=== PATIENT | female | born 1975 | race Caucasian/White ===

== ENCOUNTER 2017-07-29 11:39 | Inpatient (IN) | payer BC ==
[~2017-07-29] VITALS: Ht 157.5 cm; Wt 97.9 kg
[2017-07-29 11:43] VITALS: BP 158/90; PULSE 112; RESP 18; TEMP 98.5; O2SAT 98
--- NOTE | 2017-07-29 12:13 | PD ---
HPI Chief Complaint: GI Complaint Time Seen by Provider: 12:02 Travel History International Travel<30 days: No Contact w/Intl Traveler<30days: No Traveled to known affect area: No History of Present Illness HPI This 42-year-old female says she has not felt well for several months. She moved here from [place] about 4 months ago. She had a very heavy period about 3 months ago and that the last time she had any vaginal bleeding. The last couple of months she is been having periods where she gets nauseated and feels very tired. 9 days ago she was not able to hold anything down. She has noted that her eyes are yellow. She was drinking 3 or 4 drinks 3 or 4 times a day but has not had any alcohol for about 10 days. She has been nauseated. She is not on any medication. She does not take Tylenol. She denies any history of IV drug use [facility] Past Medical History Medical History: Denies Significant Hx Diminished Hearing: No Tetanus Vaccination: < 5 Years ?: Not Past Surgical History Section: Yes Social History Alcohol Use: Yes (SOC) Tobacco Use: No Substance Use: No Allergies-Medications (Allergen,Severity, Reaction): Coded Allergies: No Known Allergies (Unverified , 07/29/17) Reported Meds & Prescriptions Reported Meds & Active Scripts Active No Active Prescriptions or Reported Medications Review of Systems General / Constitutional: No: Fever Eyes: No: Diploplia HENT: No: Headaches, Vertigo Respiratory: No: Cough Gastrointestinal: Positive: Nausea, Vomiting, Abdominal Pain, Other (Jaundice) Genitourinary: No: Urgency, Frequency Musculoskeletal: No: Myalgias, Arthralgias Skin: Positive Change in Pigmentation, No Rash Neurologic: Positive: Weakness Hematologic/Lymphatic: Positive: Easy Bruising Physical Exam Narrative GENERAL: Well-developed female. She is intensely jaundiced SKIN: Focused skin assessment warm/dry. Jaundiced HEAD: Atraumatic. Normocephalic. EYES: Pupils equal and round. There is scleral icterus. No injection or drainage. ENT: No nasal bleeding or discharge. Mucous membranes pink and moist. NECK: Trachea midline. No JVD. CARDIOVASCULAR: Regular rate and rhythm. No murmur appreciated. RESPIRATORY: No accessory muscle use. Clear to auscultation. Breath sounds equal bilaterally. GASTROINTESTINAL: Abdomen soft, liver is enlarged and firm MUSCULOSKELETAL: No obvious deformities. No clubbing. No cyanosis. No edema. NEUROLOGICAL: Awake and alert. No obvious cranial nerve deficits. Motor grossly within normal limits. Normal speech. PSYCHIATRIC: Appropriate mood and affect; insight and judgment normal. Data Data Last Documented VS Vital Signs Date Time Temp Pulse Resp B/P (MAP) Pulse Ox O2 Delivery O2 Flow Rate FiO2 07/29/17 11:43 98.5 112 18 158/90 (112) 98 Orders Orders Urinalysis - C+S If Indicated (07/29/17 12:06) Ed Urine Pregnancytest Poc (07/29/17 12:06) Complete Blood Count With Diff (07/29/17 12:08) Comprehensive Metabolic Panel (07/29/17 12:08) Prothrombin Time / Inr (Pt) (07/29/17 12:08) Act Partial Throm Time (Ptt) (07/29/17 12:08) Magnesium (Mg) (07/29/17 12:08) Ct Abd/Pel W Iv Contrast(Rout) (07/29/17 12:08) Sodium Chlor 0.9% 1000 Ml Inj (Ns 1000 M (07/29/17 12:15) Urine Culture (07/29/17 12:05) Ammonia (07/29/17 12:56) Ns + Kcl 40 Meq Inj (Ns + Kcl 40 Meq Inj (07/29/17 13:30) Iohexol 350 Inj (Omnipaque 350 Inj) (07/29/17 13:26) Labs Laboratory Tests Test 07/29/17 12:05 07/29/17 12:20 07/29/17 13:00 Urine Collection Type CLEAN CATCH Urine Color BROWN Urine Turbidity SL CLOUDY Urine pH 6.5 Urine Specific [place] LESS/EQUAL 1.005 Urine Protein 30 mg/dL Urine Glucose (UA) 100 mg/dL Urine Ketones 15 mg/dL Urine Occult Blood MOD Urine Nitrite POS Urine Bilirubin LARGE Urine Urobilinogen 1.0 MG/DL Urine Leukocyte Esterase MOD Urine RBC 0-3 /hpf Urine WBC 15-19 /hpf Urine Squamous Epithelial Cells 0-5 /hpf Urine Bacteria MOD /hpf Microscopic Urinalysis Comment CULTURE INDICATED Urine Collection Time 12:05 White Blood Count 14.8 TH/MM3 Red Blood Count 3.78 MIL/MM3 Hemoglobin 12.4 GM/DL Hematocrit 36.4 % Mean Corpuscular Volume 96.4 FL Mean Corpuscular Hemoglobin 32.8 PG Mean Corpuscular Hemoglobin Concent 34.0 % Red Cell Distribution Width 19.7 % Platelet Count 113 TH/MM3 Mean Platelet Volume 7.8 FL Neutrophils (%) (Auto) 79.0 % Lymphocytes (%) (Auto) 10.1 % Monocytes (%) (Auto) 9.6 % Eosinophils (%) (Auto) 0.7 % Basophils (%) (Auto) 0.6 % Neutrophils # (Auto) 11.7 TH/MM3 Lymphocytes # (Auto) 1.5 TH/MM3 Monocytes # (Auto) 1.4 TH/MM3 Eosinophils # (Auto) 0.1 TH/MM3 Basophils # (Auto) 0.1 TH/MM3 CBC Comment DIFF FINAL Differential Comment Prothrombin Time 22.1 SEC Prothromb Time International Ratio 2.2 RATIO Activated Partial Thromboplast Time 34.1 SEC Blood Urea Nitrogen 7 MG/DL Creatinine 1.10 MG/DL Random Glucose 91 MG/DL Total Protein 8.6 GM/DL Albumin 1.7 GM/DL Calcium Level 7.4 MG/DL Magnesium Level 1.4 MG/DL Alkaline Phosphatase 277 U/L Aspartate Amino Transf (AST/SGOT) 302 U/L Alanine Aminotransferase (ALT/SGPT) 38 U/L Total Bilirubin 21.0 MG/DL Sodium Level 130 MEQ/L Potassium Level 2.7 MEQ/L Chloride Level 90 MEQ/L Carbon Dioxide Level 31.8 MEQ/L Anion Gap 8 MEQ/L Estimat Glomerular Filtration Rate 54 ML/MIN Protein Corrected Calcium MG/DL Ammonia 45 MCMOL/L MDM Medical Decision Making Medical Screen Exam Complete: Yes Emergency Medical Condition: Yes Medical Record Reviewed: Yes Differential Diagnosis Differential includes biliary obstruction, cirrhosis, Narrative Course .Bilirubin level is 21. Hemoglobin is 12.4 with a white count of 14,000. Urine does show 15-19 white cells. Her sodium is 130 with potassium of 2.7. Ammonia level is 45. A CT scan of the abdomen and pelvis was obtained. The liver is enlarged with diffuse decreased attenuation suggesting fatty infiltration or diffuse hepatocellular disease. There is recanalization of the umbilical vein with mild splenomegaly. Findings are suggestive of portal hypertension. There is also a thick-walled gallbladder with many minimal pericholecystic fluid there is some ascites there is mild diffuse colonic wall thickening suggesting possible colitis. Her INR is 2. This is a new onset of jaundice and possible hepatic failure. She does have mild UTI with 10-15 white cells and will be started on Rocephin. Diagnosis Primary Impression: Jaundice Additional Impression: UTI (urinary tract infection) Admitting Information Admitting Physician Requests: Admit Scripts No Active Prescriptions or Reported Meds Rex Bashir MD Jul 29, 2017 12:13
[2017-07-29] MEDS ORDERED: SODIUM CHLOR 0.9% 1000 ML INJ 1,000 ML IV ONE (12:15)
[2017-07-29 12:20] LABS: BILIRUBIN, URINE LARGE (NEG); BLOOD, URINE MOD (NEG); GLUCOSE,URINE 100 mg/dL (NEG); KETONE, URINE 15 mg/dL (NEG); NITRITE,URINE POS (NEG); PH, URINE 6.5 (5.0-8.5); URINE LEUKOCYTE ESTERASE MOD (NEG)
[2017-07-29 12:28] LABS: URINE COLOR BROWN (YELLW/STRAW)
[2017-07-29 12:29] LABS: RBC, URINE 0-3 /hpf (0-3); SQUAMOUS EPITHELIAL CELL URINE 0-5 /hpf (0-5)
[2017-07-29 12:30] LABS: BACTERIA, URINE MOD /hpf; WBC, URINE 15-19 /hpf (0-5)
[2017-07-29 12:33] LABS: AUTOMATED NEUTROPHIL # 11.7 TH/MM3 (1.8-7.7); BASOPHIL # 0.1 TH/MM3 (0-0.2); BASOPHIL % 0.6 % (0.0-2.0); EOSINOPHIL # 0.1 TH/MM3 (0-0.4); EOSINOPHIL % 0.7 % (0.0-4.0); HEMATOCRIT 36.4 % (35.0-46.0); HEMOGLOBIN 12.4 GM/DL (11.6-15.3); LYMPH % 10.1 % (9.0-44.0); LYMPHOCYTE # 1.5 TH/MM3 (1.0-4.8); MEAN CELL VOLUME 96.4 FL (80.0-100.0); MEAN CORPUSCULAR HEMOGLOBIN 32.8 PG (27.0-34.0); MEAN PLATELET VOLUME 7.8 FL (7.0-11.0); MONO % 9.6 % (0.0-8.0); MONOCYTE # 1.4 TH/MM3 (0-0.9); PLATELET COUNT 113 TH/MM3 (150-450); RED BLOOD COUNT 3.78 MIL/MM3 (4.00-5.30); RED CELL DISTRIBUTION WIDTH 19.7 % (11.6-17.2); WHITE BLOOD COUNT 14.8 TH/MM3 (4.0-11.0)
[2017-07-29 12:53] LABS: INTERNATIONAL NORMALIZED RATIO 2.2 RATIO; PROTHROMBIN TIME - PATIENT 22.1 SEC (9.8-11.6)
[2017-07-29 13:05] LABS: ALBUMIN 1.7 GM/DL (3.4-5.0); BICARBONATE 31.8 MEQ/L (21.0-32.0); CREATININE 1.1 MG/DL (0.50-1.00); MAGNESIUM 1.4 MG/DL (1.5-2.5); TOTAL PROTEIN 8.6 GM/DL (6.4-8.2)
[2017-07-29 13:08] LABS: CALCIUM 7.4 MG/DL (8.5-10.1)
[2017-07-29] MEDS ORDERED: IOHEXOL 350 MG/ML 10 ML VIAL (for RAD DIAG) IVCONTRAST ONE (13:26)
[2017-07-29] MEDS ORDERED: NS + KCL 40 MEQ INJ 1,000 ML IV SCH (13:30)
--- NOTE | 2017-07-29 13:44 | RADRPT ---
EXAM DATE/TIME: 07/29/2017 13:17 [facility] COMPARISON: No previous studies available for comparison. INDICATIONS : Abdominal pain, nausea, vomiting and diarrhea x 9 days. Jaundice. IV CONTRAST: 90 cc Omnipaque 350 (iohexol) IV ORAL CONTRAST: No oral contrast ingested. RADIATION DOSE: 20.82 CTDIvol (mGy) MEDICAL HISTORY : None SURGICAL HISTORY : section. ENCOUNTER: Initial ACUITY: 1 week PAIN SCALE: 4/10 LOCATION: Mid abdomen. TECHNIQUE: Volumetric scanning of the abdomen and pelvis was performed. Using automated exposure control and ad justment of the mA and/or kV according to patient size, radiation dose was kept as low as reasonably achievable to obtain optimal diagnostic quality images. DICOM format image data is available electro nically for review and comparison. FINDINGS: LOWER LUNGS: The visualized lower lungs are clear. LIVER: The liver is enlarged and demonstrates diffuse decreased attenuation consistent with fatty infiltrati on or diffuse hepatocellular disease. There is probable recanalization of the umbilical vein suggesti ng portal hypertension. Varices are noted throughout the abdomen. The wall of the gallbladder is mild ly thickened. Minimal pericholecystic fluid is noted. If there is clinical concern for acute cholecys titis, a hepatobiliary scan may be helpful to confirm cystic duct obstruction. SPLEEN: The spleen is enlarged. PANCREAS: Within normal limits. KIDNEYS: Normal in size and shape. There is no mass, stone or hydronephrosis. ADRENAL GLANDS: Within normal limits. VASCULAR: There is no aortic aneurysm. BOWEL/MESENTERY: Mild diffuse colonic wall thickening suggesting possible colitis. Clinical correlation is recommended . Some ascites is noted within the abdomen or pelvis. ABDOMINAL WALL: Within normal limits. RETROPERITONEUM: There is no lymphadenopathy. BLADDER: No wall thickening or mass. REPRODUCTIVE: Within normal limits. INGUINAL: There is no lymphadenopathy or hernia. MUSCULOSKELETAL: Within normal limits for patient age. CONCLUSION: 1. Enlarged liver with diffuse decreased attenuation suggestive of fatty infiltration or diffuse hepa tocellular disease. Recanalization of the umbilical vein as well as varices throughout the peritoneum . Mild splenomegaly. Findings are suggestive of portal hypertension. Clinical correlation is recommen ded. 2. Thick-walled gallbladder with minimal pericholecystic fluid. If there is clinical concern for acut e cholecystitis, a hepatobiliary scan may be helpful to confirm cystic duct structure. 3. Some ascites within the abdomen or pelvis. 4. Mild diffuse colonic wall thickening suggesting possible colitis. Ramon Vivas MD on July 29, 2017 at 13:30 Board Certified Radiologist. This report was verified electronically.
[2017-07-29] MEDS ORDERED: cefTRIAXone INJ 1,000 MG in SODIUM CHLORIDE 0.9% INJ 100 ML IV ONE (14:00)
[2017-07-29] MEDS ORDERED: NALOXONE HCL 0.4 MG/ML AMP IV PUSH PRN (14:00)
[2017-07-29] MEDS ORDERED: SENNOSIDES 8.6 MG TAB PO PRN (14:00)
[2017-07-29] MEDS ORDERED: ONDANSETRON HCL 4 MG/2 ML VIAL IVP PRN (14:00)
[2017-07-29] MEDS ORDERED: FUROSEMIDE 20 MG/2 ML VIAL IV PUSH ONE (14:00)
[2017-07-29] MEDS ORDERED: SODIUM CHLORIDE 0.9% FLUSH 10 ML FLUSH IV FLUSH PRN (14:00)
[2017-07-29] MEDS: metroNIDAZOLE 500 MG TAB PO SCH ×2 (14:11→21:18)
--- NOTE | 2017-07-29 14:59 | HHI.HP ---
HPI Service [facility] Primary Care Physician No Primary Care Physician Admission Diagnosis JAUNDICE Diagnoses: Chief Complaint: abdominal pain Travel History International Travel<30 Days: No Contact w/Intl Traveler <30 Da: No Traveled to Known Affected Are: No Sepsis Criteria SIRS Criteria (2 or more): Heart rate over 90, WBC > 92678, < 4000 or > 10% bands Sepsis Criteria (SIRS+source): Infect source susp/known History of Present Illness Patient seen and evaluated today in follow-up for jaundice. She has come to the emergency room complaining of vaginal bleeding and epistaxis with yellow eyes for the last several days. She drinks quite a bit of rum daily for the last 20 years although for the last 10 days she has been abstinent because she has been too nauseated to drink. She lives with her and recently relocated from [place]. She has not had any liver failure probably from alcohol dependency. She is recommended to be admitted to the hospital for further evaluation. CT and pelvis that showed some evidence of colitis the patient is septic on exam. She denies vomiting or intestinal bleeding. She has noted some easy bruising and yellow eyes. For this she came to the hospital and was found to have increased heart rate and LFTs as well as an elevated ammonia. Patient appears to have acute onset of Review of Systems Constitutional: DENIES: Diaphoretic episodes, Fatigue, Fever, Weight gain, Weight loss, Chills, Dizziness, Change in appetite, Night Sweats Endocrine: DENIES: Abnorml menstrual pattern, Heat/cold intolerance, Polydipsia , Polyuria, Polyphagia Eyes: DENIES: Blurred vision, Diplopia, Eye inflammation, Eye pain, Vision loss , Photosensitivity, Double Vision Ears, nose, mouth, throat: COMPLAINS OF: Epistaxis, DENIES: Tinnitus, Hearing loss, Vertigo, Nasal discharge, Oral lesions, Throat pain, Hoarseness, Ear Pain , Running Nose, Sinus Pain, Toothache, Odynophagia Respiratory: DENIES: Apneas, Cough, Snoring, Wheezing, Hemoptysis, Sputum production, Shortness of breath Cardiovascular: DENIES: Chest pain, Palpitations, Syncope, Dyspnea on Exertion , PND, Lower Extremity Edema, Orthopnea, Claudication Gastrointestinal: COMPLAINS OF: Abdominal pain, DENIES: Black stools, Bloody stools, Constipation, Diarrhea, Nausea, Vomiting, Difficulty Swallowing, Anorexia Genitourinary: COMPLAINS OF: Abnormal vaginal bleeding, DENIES: Dysmenorrhea, Dyspareunia, Sexual dysfunction, Urinary frequency, Urinary incontinence, Urgency, Hematuria, Dysuria, Nocturia, Vaginal discharge Musculoskeletal: DENIES: Joint pain, Muscle aches, Stiffness, Joint Swelling, Back pain, Neck pain Integumentary: DENIES: Abnormal pigmentation, Pruritus, Rash, Nail changes, Breast masses, Breast skin changes, Nipple discharge Hematologic/lymphatic: DENIES: Bruising, Lymphadenopathy Immunologic/allergic: DENIES: Eczema, Urticaria Neurologic: DENIES: Abnormal gait, Headache, Localized weakness, Paresthesias, Seizures, Speech Problems, Tremor, Poor Balance Psychiatric: DENIES: Anxiety, Confusion, Mood changes, Depression, Hallucinations, Agitation, Suicidal Ideation, Homicidal Ideation, Delusions Except as stated in HPI: all other systems reviewed are Neg Past Family Social History Past Medical History Denies Past Surgical History Reported Medications Denies Allergies: Coded Allergies: No Known Allergies (Unverified , 07/29/17) Active Ordered Medications Reviewed in the EMR Family History Mother has COPD and breast cancer Father is alive and well Social History No current tobacco, drinks 5 liquor drinks daily for the last 20 years Recently transferred from [place] Physical Exam Vital Signs Vital Signs Date Time Temp Pulse Resp B/P (MAP) Pulse Ox O2 Delivery O2 Flow Rate FiO2 07/29/17 11:43 98.5 112 18 158/90 (112) 98 Physical Exam GENERAL: This is a well-nourished, jaundice SKIN: Diffuse telangiectasia no rashes, ecchymoses or lesions. Cool and dry. HEAD: Atraumatic. Normocephalic. No temporal or scalp tenderness. EYES: Pupils equal round and reactive. Extraocular motions intact. severe icterus. No injection or drainage. ENT: Nose without bleeding, purulent drainage or septal hematoma. Throat without erythema, tonsillar hypertrophy or exudate. Uvula midline. Airway patent. NECK: Trachea midline. No JVD or lymphadenopathy. Supple, nontender, no meningeal signs. CARDIOVASCULAR: Regular rate and rhythm without murmurs, gallops, or rubs. RESPIRATORY: Clear to auscultation. Breath sounds equal bilaterally. No wheezes , rales, or rhonchi. GASTROINTESTINAL: Abdomen soft, non-tender, mildly distended. No hepato- splenomegaly, or palpable masses. No guarding. MUSCULOSKELETAL: Extremities without clubbing, cyanosis, or edema. No joint tenderness, effusion, or edema noted. No calf tenderness. Negative Homans sign bilaterally. NEUROLOGICAL: Awake and alert. Cranial nerves II through XII intact. Motor and sensory grossly within normal limits. Five out of 5 muscle strength in all muscle groups. Normal speech. Laboratory Laboratory Tests Test 07/29/17 12:05 07/29/17 12:20 07/29/17 13:00 Urine Collection Type CLEAN CATCH Urine Color BROWN Urine Turbidity SL CLOUDY Urine pH 6.5 Urine Specific [place] LESS/EQUAL 1.005 Urine Protein 30 Urine Glucose (UA) 100 Urine Ketones 15 Urine Occult Blood MOD Urine Nitrite POS Urine Bilirubin LARGE Urine Urobilinogen 1.0 Urine Leukocyte Esterase MOD Urine RBC 0-3 Urine WBC 15-19 Urine Squamous Epithelial Cells 0-5 Urine Bacteria MOD Microscopic Urinalysis Comment CULTURE INDICATED Urine Collection Time 12:05 White Blood Count 14.8 Red Blood Count 3.78 Hemoglobin 12.4 Hematocrit 36.4 Mean Corpuscular Volume 96.4 Mean Corpuscular Hemoglobin 32.8 Mean Corpuscular Hemoglobin Concent 34.0 Red Cell Distribution Width 19.7 Platelet Count 113 Mean Platelet Volume 7.8 Neutrophils (%) (Auto) 79.0 Lymphocytes (%) (Auto) 10.1 Monocytes (%) (Auto) 9.6 Eosinophils (%) (Auto) 0.7 Basophils (%) (Auto) 0.6 Neutrophils # (Auto) 11.7 Lymphocytes # (Auto) 1.5 Monocytes # (Auto) 1.4 Eosinophils # (Auto) 0.1 Basophils # (Auto) 0.1 CBC Comment DIFF FINAL Differential Comment Prothrombin Time 22.1 Prothromb Time International Ratio 2.2 Activated Partial Thromboplast Time 34.1 Blood Urea Nitrogen 7 Creatinine 1.10 Random Glucose 91 Total Protein 8.6 Albumin 1.7 Calcium Level 7.4 Magnesium Level 1.4 Alkaline Phosphatase 277 Aspartate Amino Transf (AST/SGOT) 302 Alanine Aminotransferase (ALT/SGPT) 38 Total Bilirubin 21.0 Sodium Level 130 Potassium Level 2.7 Chloride Level 90 Carbon Dioxide Level 31.8 Anion Gap 8 Estimat Glomerular Filtration Rate 54 Protein Corrected Calcium Ammonia 45 Date/Time Source Procedure Growth Status 07/29/17 12:05 Urine Clean Catch Urine Culture Pending Received Result Diagram: 07/29/17 1220 07/29/17 1220 Imaging Last Impressions Abdomen/Pelvis CT 07/29/17 1208 Signed Impressions: Service Date/Time: July 13:17 - CONCLUSION: 1. Enlarged liver with diffuse decreased attenuation suggestive of fatty infiltration or diffuse hepatocellular disease. Recanalization of the umbilical vein as well as varices throughout the peritoneum. Mild splenomegaly. Findings are suggestive of portal hypertension. Clinical correlation is recommended. 2. Thick-walled gallbladder with minimal pericholecystic fluid. If there is clinical concern for acute cholecystitis, a hepatobiliary scan may be helpful to confirm cystic duct structure. 3. Some ascites within the abdomen or pelvis. 4. Mild diffuse colonic wall thickening suggesting possible colitis. Ramon Vivas MD Septic Shock Reassessment Septic shock perfusion: reassessment completed Caprini VTE Risk Assessment Caprini VTE Risk Assessment: Mod/High Risk (score >= 2) VTE Pharm Contraindication: Coagulopathy,INR elevated Caprini Risk Assessment Model Point Value = 1 Point Value = 2 Point Value = 3 Point Value = 5 Age 41-60 Minor surgery BMI > 25 kg/m2 Swollen legs Varicose veins or History of unexplained or recurrent spontaneous Oral contraceptives or hormone replacement Sepsis (< 1 month) Serious lung disease, including pneumonia (< 1 month) Abnormal pulmonary function Acute myocardial infarction Congestive heart failure (< 1 month) History of inflammatory bowel disease Medical patient at bed rest Age 61-74 Arthroscopic surgery Major open surgery (> 45 min) Laparoscopic surgery (> 45 min) Malignancy Confined to bed (> 72 hours) Immobilizing plaster cast Central venous access Age >= 75 History of VTE Family history of VTE Factor V Leiden Prothrombin [id number] Lupus anticoagulant Anticardiolipin antibodies Elevated serum homocysteine Heparin-induced thrombocytopenia Other congenital or acquired thrombophilia Stroke (< 1 month) Elective arthroplasty Hip, pelvis, or leg fracture Acute spinal cord injury (< 1 month) Prophylaxis Regimen Total Risk Factor Score Risk Level Prophylaxis Regimen 0-1 Low Early ambulation 2 Moderate Order ONE of the following: *Sequential Compression Device (SCD) *Heparin 5000 units SQ BID 3-4 Higher Order ONE of the following medications: *Heparin 5000 units SQ TID *Enoxaparin/Lovenox 40 mg SQ daily (WT < 150 kg, CrCl > 30 mL/min) *Enoxaparin/Lovenox 30 mg SQ daily (WT < 150 kg, CrCl > 10-29 mL/min) *Enoxaparin/Lovenox 30 mg SQ BID (WT < 150 kg, CrCl > 30 mL/min) AND/OR *Sequential Compression Device (SCD) 5 or more Highest Order ONE of the following medications: *Heparin 5000 units SQ TID (Preferred with Epidurals) *Enoxaparin/Lovenox 40 mg SQ daily (WT < 150 kg, CrCl > 30 mL/min) *Enoxaparin/Lovenox 30 mg SQ daily (WT < 150 kg, CrCl > 10-29 mL/min) *Enoxaparin/Lovenox 30 mg SQ BID (WT < 150 kg, CrCl > 30 mL/min) AND *Sequential Compression Device (SCD) Assessment and Plan Problem List: (1) Abdominal pain ICD Code: R10.9 - Unspecified abdominal pain Plan: Multifactorial due to probable colitis and ascites Continue with pain control (2) UTI (urinary tract infection) ICD Code: N39.0 - Urinary tract infection, site not specified Status: Acute Plan: Continue Cipro and follow-up cultures (3) Jaundice ICD Code: R17 - Unspecified jaundice Status: Acute Plan: Probably related to alcohol related and beta-jorge luis GI consult We will check hepatitis profile to rule out underlying viral hepatitis Patient may need HIDA scan (4) Colitis ICD Code: K52.9 - Noninfective gastroenteritis and colitis, unspecified Plan: With evidence of sepsis and leukocytosis, tachycardia Continue IV metronidazole and ciprofloxacin (5) Hepatic failure ICD Code: K72.90 - Hepatic failure, unspecified without coma Plan: Likely related to alcohol dependency as patient has been drinking rum daily for the last 20 years Patient has telangiectasias, elevated PT and a bilirubin of 21 with a sodium of 130 and elevated creatinine This is poor overall prognosis (6) Hypokalemia ICD Code: E87.6 - Hypokalemia Plan: follow up electrolytes and replace as needed Code Status full code Discussed Condition With patient ERMD Physician Certification 2 Midnight Certification Type: Admission for Inpatient Services Order for Inpatient Services The services are ordered in accordance with Medicare regulations or non- Medicare payer requirements, as applicable. In the case of services not specified as inpatient-only, they are appropriately provided as inpatient services in accordance with the 2-midnight benchmark. Estimated LOS (days): 2 2 days is the estimated time the patient will need to remain in the hospital, assuming treatment plan goals are met and no additional complications. Post-Hospital Plan: Chloe Rivera MD Jul 29, 2017 14:59
[2017-07-29] MEDS ORDERED: MAGNESIUM SULFATE 1 GM PREMIX 100 ML IV ONE ×2 (15:00→16:00)
[2017-07-29] MEDS: CIPROFLOXACIN 400 MG PREMIX 200 ML IV SCH (15:03)
[2017-07-29] MEDS: POTASSIUM CHLORIDE 20 MEQ CONTROLLED RELEASE TAB PO SCH ×2 (15:09→21:12)
[2017-07-29 15:26] VITALS: BP 137/68; PULSE 75; RESP 16; O2SAT 97
--- NOTE | 2017-07-29 15:32 | PD.CONS ---
HPI History of Present Illness This is a 42 year old female admitted on 07/29/17 with symptoms of fatigue, nausea for the last 3 months, vomiting 10 days, and generalized jaundice over the past 6 days. According to the record and patient she moved here approximately 4 months ago from the [place] area with her . Associating factors , Patient states daily alcohol dependence and usage, rum, 3- 4 drinks a day. She denies any illicit drugs or tobacco use. She also had noticed some abdominal bloating with her jaundice but was hoping that it would pass. Currently patient is alert, awake, and answering questions appropriately. Patient denies any fevers, no headache, no diarrhea, no constipation, and no dysphasia. Patient states No previous colonoscopy or EGD. Patient denies any hematemesis or rectal bleeding. (Lindsay Lazar) PFSH Past Medical History Alcohol dependence Past Surgical History (Lindsay Lazar) Coded Allergies: No Known Allergies (Unverified , 07/29/17) Medications Administered Medications Medications (Trade) Dose Ordered Sig/Jermaine Route PRN Reason Start Time Stop Time Status Last Admin Dose Admin Ciprofloxacin/ Dextrose 200 ml @ 200 mls/hr Q12H IV 07/29/17 15:00 07/29/17 15:03 Metronidazole (Flagyl) 500 mg Q8HR PO 07/29/17 14:00 07/29/17 14:11 Family History Mother has COPD and breast cancer Father is alive and well No history of colon cancer or GI illness Social History No current tobacco, drinks 5 liquor drinks daily for the last 20 years Recently transferred from [place] 4 months ago (Lindsay Lazar) Review of Systems Constitutional: COMPLAINS OF: Fatigue Gastrointestinal: COMPLAINS OF: Nausea, Vomiting, Swelling of Abdomen (Lindsay Lazar) GI Exam Vitals I&O Vital Signs Date Time Temp Pulse Resp B/P (MAP) Pulse Ox O2 Delivery O2 Flow Rate FiO2 07/29/17 11:43 98.5 112 18 158/90 (112) 98 I/O 07/28/17 07/28/17 07/28/17 07/29/17 07/29/17 07/29/17 07:00 15:00 23:00 07:00 15:00 23:00 Intake Total 1000 ml 100 ml Balance 1000 ml 100 ml Intake IV Total 1000 ml 100 ml Imaging Last Impressions Abdomen/Pelvis CT 07/29/17 1208 Signed Impressions: Service Date/Time: July 13:17 - CONCLUSION: 1. Enlarged liver with diffuse decreased attenuation suggestive of fatty infiltration or diffuse hepatocellular disease. Recanalization of the umbilical vein as well as varices throughout the peritoneum. Mild splenomegaly. Findings are suggestive of portal hypertension. Clinical correlation is recommended. 2. Thick-walled gallbladder with minimal pericholecystic fluid. If there is clinical concern for acute cholecystitis, a hepatobiliary scan may be helpful to confirm cystic duct structure. 3. Some ascites within the abdomen or pelvis. 4. Mild diffuse colonic wall thickening suggesting possible colitis. Ramon Vivas MD Laboratory Test 07/29/17 12:05 07/29/17 12:20 07/29/17 13:00 Urine Collection Type CLEAN CATCH Urine Color BROWN Urine Turbidity SL CLOUDY Urine pH 6.5 Urine Specific [place] LESS/EQUAL 1.005 Urine Protein 30 mg/dL Urine Glucose (UA) 100 mg/dL Urine Ketones 15 mg/dL Urine Occult Blood MOD Urine Nitrite POS Urine Bilirubin LARGE Urine Urobilinogen 1.0 MG/DL Urine Leukocyte Esterase MOD Urine RBC 0-3 /hpf Urine WBC 15-19 /hpf Urine Squamous Epithelial Cells 0-5 /hpf Urine Bacteria MOD /hpf Microscopic Urinalysis Comment CULTURE INDICATED Urine Collection Time 12:05 White Blood Count 14.8 TH/MM3 Red Blood Count 3.78 MIL/MM3 Hemoglobin 12.4 GM/DL Hematocrit 36.4 % Mean Corpuscular Volume 96.4 FL Mean Corpuscular Hemoglobin 32.8 PG Mean Corpuscular Hemoglobin Concent 34.0 % Red Cell Distribution Width 19.7 % Platelet Count 113 TH/MM3 Mean Platelet Volume 7.8 FL Neutrophils (%) (Auto) 79.0 % Lymphocytes (%) (Auto) 10.1 % Monocytes (%) (Auto) 9.6 % Eosinophils (%) (Auto) 0.7 % Basophils (%) (Auto) 0.6 % Neutrophils # (Auto) 11.7 TH/MM3 Lymphocytes # (Auto) 1.5 TH/MM3 Monocytes # (Auto) 1.4 TH/MM3 Eosinophils # (Auto) 0.1 TH/MM3 Basophils # (Auto) 0.1 TH/MM3 CBC Comment DIFF FINAL Differential Comment Prothrombin Time .1 SEC Prothromb Time International Ratio 2.2 RATIO Activated Partial Thromboplast Time 34.1 SEC Blood Urea Nitrogen 7 MG/DL Creatinine 1.10 MG/DL Random Glucose 91 MG/DL Total Protein 8.6 GM/DL Albumin 1.7 GM/DL Calcium Level 7.4 MG/DL Magnesium Level 1.4 MG/DL Alkaline Phosphatase 277 U/L Aspartate Amino Transf (AST/SGOT) 302 U/L Alanine Aminotransferase (ALT/SGPT) 38 U/L Total Bilirubin 21.0 MG/DL Sodium Level 130 MEQ/L Potassium Level 2.7 MEQ/L Chloride Level 90 MEQ/L Carbon Dioxide Level 31.8 MEQ/L Anion Gap 8 MEQ/L Estimat Glomerular Filtration Rate 54 ML/MIN Protein Corrected Calcium MG/DL Ammonia 45 MCMOL/L Date/Time Source Procedure Growth Status 07/29/17 12:05 Urine Clean Catch Urine Culture Pending Received Physical Examination HEENT: Pupils round and reactive to light; normocephalic; atraumatic; positive for jaundice icteric sclera NECK: Neck is supple, no JVD, no lymphadenopathy. CHEST: Chest is clear to audible rhonchi or wheezing CARDIAC: Regular rate and rhythm ABDOMEN: Large, Soft, tympanic, no obvious tenderness with light palpation, + hepatosplenomegaly; bowel sounds are present in all four quadrants. EXTREMITIES: No lower extremity edema. SKIN: Normal; no rash; generalized jaundice. DESIGN COORDINATOR: No focal deficits; alert and oriented times three. No obvious confusion (Lindsay Lazar) Assessment and Plan Assessment: (1) Jaundice ICD Codes: R17 - Unspecified jaundice Status: Acute (2) Hepatic failure ICD Codes: K72.90 - Hepatic failure, unspecified without coma Plan 42-year-old male with long history of alcohol dependence greater than 20 years multiple drinks at least 4 times a day. No previous EGD or colonoscopy. Noted fatigue for several months jaundice and abdominal bloating and swelling for the past 6 days worsening. Patient denies any diarrhea or constipation. Nausea for several months with nausea and vomiting for the past 10 days. Current hemoglobin is 12.4 patient denies any obvious bleeding. Mild leukocytosis with white count 14.8. Labs show bilirubin 21, AST 302, ALT 38, alkaline phosphatase 277,, coagulopathy with increased INR 2.2. Abdominal CT done on 07/29/17 shows an enlarged liver with diffuse decreased attenuation suggestive of fatty infiltration or diffuse hepatocellular disease. Recannulization of the umbilical vein as well as varices throughout the peritoneum. Mild splenomegaly, suggestive of portal hypertension. Clinical correlation is recommended. Peak walled gallbladder with minimal tayler- cholecystic fluid., If there is clinical concern for cholecystitis, a hepatobiliary scan may be helpful to confirm cystic duct stricture. Ascites within the abdomen and pelvis. Mild diffuse colonic wall thickening suggesting possible colitis. Probable alcoholic hepatic failure without, Jaundice Coagulopathy Nausea and vomiting probable secondary to #1 Possible colitis based on CT scan Rule out cholecystitis, or common bile not stricture/dilatation Plan Diet per attending Mack IV with Flagyl being given by mouth Aldactone 25 mg twice a day, lactulose daily Zofran as needed for nausea Labs, liver workup, hepatic functional panel AFP Mitochondrial total labs Smooth muscle tone on labs Ceruloplasmin JEANINE Ferritin level Iron iron-binding capacity MRCP, to evaluate for common bile duct stricture Further recommendations to follow This patient was seen per myself and Dr. Cisneros, note is written on his behalf (Lindsay Lazar) Assessment: (1) Jaundice ICD Codes: R17 - Unspecified jaundice Status: Acute (2) Hepatic failure ICD Codes: K72.90 - Hepatic failure, unspecified without coma Plan: Patient was seen and examined, agree with above-noted, most likely this is alcohol related but other etiology cannot be ruled out such as acute hepatitis infectious or other etiologies will be consider we will plan on doing full workup, patient was advised to stop drinking completely (Mayad Jane MD) Lindsay Lazar Jul 29, 2017 15:32 Mayda Jane MD Jul 29, 2017 18:36
[2017-07-29 15:38] LABS: ALBUMIN 1.6 GM/DL (3.4-5.0)
[2017-07-29 15:40] LABS: DIRECT BILIRUBIN ADULT 15.2 MG/DL (0.0-0.2)
[2017-07-29 15:41] LABS: ALT (GPT) 38 U/L (10-53); AST (GOT) 283 U/L (15-37); DIRECT BILIRUBIN ADULT 15.6 MG/DL (0.0-0.2); PHOSPHORUS 1.7 MG/DL (2.5-4.9)
[2017-07-29 15:42] LABS: INDIRECT BILIRUBIN 4.7 MG/DL (0.0-0.8); TOTAL BILIRUBIN ADULT 19.9 MG/DL (0.2-1.0); TOTAL PROTEIN 8.1 GM/DL (6.4-8.2)
[2017-07-29 15:44] LABS: ALKALINE PHOSPHATASE 256 U/L (45-117)
[2017-07-29 16:00] VITALS: BP 141/91; PULSE 109; RESP 18; TEMP 98.9; O2SAT 99
[2017-07-29 17:34] LABS: IRON (FE) 44 MCG/DL (50-170)
[2017-07-29 17:37] LABS: % SATURATION IRON PROFILE 36.1 % (20-50); FERRITIN 1028 NG/ML (8-252); TOTAL IRON BINDING CAPACITY 122 MCG/DL (250-450)
[2017-07-29] MEDS: SPIRONOLACTONE 25 MG TAB PO SCH (17:37)
[2017-07-29 20:00] VITALS: BP 127/76; PULSE 105; RESP 20; TEMP 98; O2SAT 97
[2017-07-29] MEDS: SODIUM CHLORIDE 0.9% FLUSH 10 ML FLUSH IV FLUSH SCH (21:13)
[2017-07-30] VITALS: BP 129/77; PULSE 101; RESP 20; TEMP 98.2; O2SAT 98
[2017-07-30] MEDS: CIPROFLOXACIN 400 MG PREMIX 200 ML IV SCH ×2 (04:21→15:44)
[2017-07-30] MEDS: metroNIDAZOLE 500 MG TAB PO SCH ×3 (06:27→21:03)
[2017-07-30 06:51] LABS: BASOPHIL # 0.1 TH/MM3 (0-0.2); BASOPHIL % 0.8 % (0.0-2.0); EOSINOPHIL # 0.2 TH/MM3 (0-0.4); EOSINOPHIL % 1.8 % (0.0-4.0); HEMOGLOBIN 11.4 GM/DL (11.6-15.3); LYMPH % 12.9 % (9.0-44.0); LYMPHOCYTE # 1.7 TH/MM3 (1.0-4.8); MEAN CELL VOLUME 96.7 FL (80.0-100.0); MEAN CORPUSCULAR HEMOGLOBIN 32.5 PG (27.0-34.0); MEAN CORPUSCULAR HGB CONC 33.6 % (32.0-36.0); MEAN PLATELET VOLUME 8.4 FL (7.0-11.0); MONO % 8.7 % (0.0-8.0); MONOCYTE # 1.1 TH/MM3 (0-0.9); NEUT % 75.8 % (16.0-70.0); PLATELET COUNT 106 TH/MM3 (150-450); RED BLOOD COUNT 3.51 MIL/MM3 (4.00-5.30); RED CELL DISTRIBUTION WIDTH 19.6 % (11.6-17.2); WHITE BLOOD COUNT 13.1 TH/MM3 (4.0-11.0)
[2017-07-30 07:28] LABS: ALBUMIN 1.5 GM/DL (3.4-5.0); BICARBONATE 28.7 MEQ/L (21.0-32.0); CREATININE 0.91 MG/DL (0.50-1.00); TOTAL BILIRUBIN ADULT 19.9 MG/DL (0.2-1.0); TOTAL PROTEIN 7.7 GM/DL (6.4-8.2)
[2017-07-30 07:39] LABS: CALCIUM 7.1 MG/DL (8.5-10.1)
[2017-07-30 07:42] LABS: CALCIUM-PROTEIN CORRECTED 6.9 MG/DL (8.5-10.1)
[2017-07-30 08:49] VITALS: BP 133/85; PULSE 98; RESP 16; TEMP 99.2; O2SAT 97
[2017-07-30] MEDS: SPIRONOLACTONE 25 MG TAB PO SCH ×2 (08:53→17:47)
[2017-07-30] MEDS: POTASSIUM CHLORIDE 20 MEQ CONTROLLED RELEASE TAB PO SCH ×2 (08:53→21:03)
[2017-07-30] MEDS: LACTULOSE SYRUP 20 GM/30 ML CUP PO SCH (08:54)
[2017-07-30] MEDS: SODIUM CHLORIDE 0.9% FLUSH 10 ML FLUSH IV FLUSH SCH ×2 (08:54→19:53)
[2017-07-30] MEDS ORDERED: POTASSIUM CHLOR 20 MEQ PREMIX 100 ML IV ONE (09:00)
[2017-07-30] MEDS ORDERED: POTASSIUM CHLORIDE 20 MEQ CONTROLLED RELEASE TAB PO ONE (09:00)
[2017-07-30 10:27] LABS: MAGNESIUM 1.8 MG/DL (1.5-2.5)
[2017-07-30 10:31] LABS: PHOSPHORUS 1.2 MG/DL (2.5-4.9)
[2017-07-30] MEDS ORDERED: CALCIUM GLUCONATE INJ 2 GM in SODIUM CHLORIDE 0.9% INJ 100 ML IV ONE (11:00)
--- NOTE | 2017-07-30 11:19 | HHI.PR ---
Subjective Remarks Patient seen and evaluated today in follow-up for liver failure likely multifactorial due to hepatitis C and alcohol dependency Patient feels better today. Abdominal pain is improved Objective Vitals Vital Signs Date Time Temp Pulse Resp B/P (MAP) Pulse Ox O2 Delivery O2 Flow Rate FiO2 07/30/17 08:49 99.2 98 16 133/85 (101) 97 07/30/17 00:00 98.2 101 20 129/77 (94) 98 07/29/17 20:00 98.0 105 20 127/76 (93) 97 07/29/17 16:00 98.9 109 18 141/91 (108) 99 07/29/17 15:57 07/29/17 15:26 75 16 137/68 (91) 97 07/29/17 11:43 98.5 112 18 158/90 (112) 98 I/O 07/29/17 07/29/17 07/29/17 07/30/17 07/30/17 07/30/17 07:00 15:00 23:00 07:00 15:00 23:00 Intake Total 1125 ml 400 ml 120 ml Balance 1125 ml 400 ml 120 ml Intake Oral 120 ml IV Total 1125 ml 400 ml # Voids 1 8 # Bowel Movements 0 Result Diagram: 07/30/17 0607 07/30/17 0607 Imaging Last Impressions Abdomen/Pelvis CT 07/29/17 1208 Signed Impressions: Service Date/Time: July 13:17 - CONCLUSION: 1. Enlarged liver with diffuse decreased attenuation suggestive of fatty infiltration or diffuse hepatocellular disease. Recanalization of the umbilical vein as well as varices throughout the peritoneum. Mild splenomegaly. Findings are suggestive of portal hypertension. Clinical correlation is recommended. 2. Thick-walled gallbladder with minimal pericholecystic fluid. If there is clinical concern for acute cholecystitis, a hepatobiliary scan may be helpful to confirm cystic duct structure. 3. Some ascites within the abdomen or pelvis. 4. Mild diffuse colonic wall thickening suggesting possible colitis. Ramon Vivas MD Objective Remarks GENERAL: This is a well-nourished, well-developed patient, jaundiced CARDIOVASCULAR: Regular rate and rhythm without murmurs, gallops, or rubs. RESPIRATORY: Clear to auscultation. Breath sounds equal bilaterally. No wheezes , rales, or rhonchi. GASTROINTESTINAL: Abdomen soft, non-tender, mildly distended. Normal active bowel sounds MUSCULOSKELETAL: Extremities without clubbing, cyanosis, or edema. NEURO: Alert & Oriented x4 to person, place, time, situation. Moves all ext x4 A/P Problem List: (1) Abdominal pain ICD Code: R10.9 - Unspecified abdominal pain Plan: Multifactorial due to probable colitis and ascites Continue with pain control and treatment of infection (2) UTI (urinary tract infection) ICD Code: N39.0 - Urinary tract infection, site not specified Status: Acute Plan: Continue Cipro and follow-up cultures (3) Jaundice ICD Code: R17 - Unspecified jaundice Status: Acute Plan: Probably related to alcohol related Continue with Aldactone, beta-jorge luis and lactulose GI consult appreciated, hepatitis C positive Follow-up MRCP (4) Colitis ICD Code: K52.9 - Noninfective gastroenteritis and colitis, unspecified Plan: With evidence of sepsis and leukocytosis, tachycardia Continue IV metronidazole and ciprofloxacin (5) Hepatic failure ICD Code: K72.90 - Hepatic failure, unspecified without coma Plan: Multifactorial due to alcohol dependency and hepatitis C Workup in progress (6) Hypokalemia ICD Code: E87.6 - Hypokalemia Plan: follow up electrolytes and replace as needed Hypo-magnesium is improved Patient with hypophosphatemia And hypokalemia Discharge Planning Clinical improvement and pending workup Chloe Chamberlain MD Jul 30, 2017 11:19
--- NOTE | 2017-07-30 11:53 | RADRPT ---
EXAM DATE/TIME: 07/30/2017 09:57 [facility] COMPARISON: No previous studies available for comparison. INDICATIONS : Obstruction. Jaundice and stomach pain. MEDICAL HISTORY : None. SURGICAL HISTORY : section. ENCOUNTER: Initial ACUITY: 1 day PAIN SCORE: 6/10 LOCATION: Right upper quadrant TECHNIQUE: Multiplanar, multisequence magnetic resonance imaging of the abdomen was performed. High-resolution 3D dataset was utilized to reconstruct maximum-intensity projection (MIP) images. FINDINGS: The examination is degraded by motion artifact. I do not see obvious gallstones. Trace ascites is e vident. The gallbladder wall does not appear to be thickened by MRI The common duct is very small and appears normal Moderate fatty replacement of the liver Normal size spleen The portal vein appears patent. CONCLUSION: 1. Ascities 2. Prominent gallbladder and gallbladder wall. No gallstones. 3. Normal common duct 4. Pancreas poorly seen because of motion Josh Post MD FACR on July 30, 2017 at 11:49 Board Certified Radiologist. This report was verified electronically.
[2017-07-30 12:00] VITALS: BP 146/96; PULSE 98; RESP 16; TEMP 97.7; O2SAT 97
[2017-07-30] MEDS: POTASSIUM PHOSPHATE MONOBASIC 500 MG TAB PO SCH ×2 (12:43→21:03)
--- NOTE | 2017-07-30 15:14 | HHI.GIFU ---
Subjective Remarks Patient is laying in bed comfortably, still very jaundice, less abdominal pain, no new complaint except being anxious about the results of her labs and x-rays Objective Vitals I&O Vital Signs Date Time Temp Pulse Resp B/P (MAP) Pulse Ox O2 Delivery O2 Flow Rate FiO2 07/30/17 12:00 97.7 98 16 146/96 (113) 97 07/30/17 08:49 99.2 98 16 133/85 (101) 97 07/30/17 00:00 98.2 101 20 129/77 (94) 98 07/29/17 20:00 98.0 105 20 127/76 (93) 97 07/29/17 16:00 98.9 109 18 141/91 (108) 99 07/29/17 15:57 07/29/17 15:26 75 16 137/68 (91) 97 I/O 07/29/17 07/29/17 07/29/17 07/30/17 07/30/17 07/30/17 07:00 15:00 23:00 07:00 15:00 23:00 Intake Total 1125 ml 400 ml 120 ml Balance 1125 ml 400 ml 120 ml Intake Oral 120 ml IV Total 1125 ml 400 ml # Voids 1 8 # Bowel Movements 0 Laboratory Laboratory Tests Test 07/29/17 15:17 07/29/17 18:35 07/30/17 06:07 07/30/17 10:52 Phosphorus Level 1.7 1.2 Iron Level 44 Total Iron Binding Capacity 122 Percent Iron Saturation 36.1 Ferritin 1028 Total Bilirubin 19.9 19.9 Direct Bilirubin 15.2 Indirect Bilirubin 4.7 Aspartate Amino Transf (AST/SGOT) 283 252 Alanine Aminotransferase (ALT/SGPT) 38 34 Alkaline Phosphatase 256 244 Total Creatine Kinase 149 Total Protein 8.1 7.7 Albumin 1.6 1.5 Thyroid Stimulating Hormone 3rd Gen 2.560 Hepatitis A IgM Antibody NONREACTIVE Hepatitis B Surface Antigen NONREACTIVE Hepatitis B Core IgM Antibody NONREACTIVE Hepatitis C IgG Antibody REACTIVE Tumor Marker Alpha Fetoprotein 4.7 White Blood Count 13.1 Red Blood Count 3.51 Hemoglobin 11.4 Hematocrit 34.0 Mean Corpuscular Volume 96.7 Mean Corpuscular Hemoglobin 32.5 Mean Corpuscular Hemoglobin Concent 33.6 Red Cell Distribution Width 19.6 Platelet Count 106 Mean Platelet Volume 8.4 Neutrophils (%) (Auto) 75.8 Lymphocytes (%) (Auto) 12.9 Monocytes (%) (Auto) 8.7 Eosinophils (%) (Auto) 1.8 Basophils (%) (Auto) 0.8 Neutrophils # (Auto) 10.0 Lymphocytes # (Auto) 1.7 Monocytes # (Auto) 1.1 Eosinophils # (Auto) 0.2 Basophils # (Auto) 0.1 CBC Comment DIFF FINAL Differential Comment Blood Urea Nitrogen 5 Creatinine 0.91 Random Glucose 90 Calcium Level 7.1 Sodium Level 133 Potassium Level 2.7 Chloride Level 94 Carbon Dioxide Level 28.7 Anion Gap 10 Estimat Glomerular Filtration Rate 68 Protein Corrected Calcium 6.9 Magnesium Level 1.8 Test 07/30/17 12:23 Ammonia 67 Date/Time Source Procedure Growth Status 07/29/17 12:05 Urine Clean Catch Urine Culture - Preliminary RESULTS PENDING Resulted Physical Exam HEENT: Pupils round and reactive to light; normocephalic; atraumatic; severe jaundice. Throat is clear. NECK: Neck is supple, no JVD, no lymphadenopathy. CHEST: Chest is clear to auscultation and percussion. CARDIAC: Regular rate and rhythm with no murmur gallop or rubs. ABDOMEN: Soft, distended with ascites, nontender; no hepatosplenomegaly; bowel sounds are present in all four quadrants. EXTREMITIES: No clubbing, cyanosis, trace edema. SKIN: Normal; no rash; severe jaundice. TRANSITION PROGRAM MANAGER: No focal deficits; alert and oriented times three. Assessment and Plan Assessment: (1) Jaundice ICD Codes: R17 - Unspecified jaundice Status: Acute (2) Hepatic failure ICD Codes: K72.90 - Hepatic failure, unspecified without coma Plan: Patient was seen and examined, agree with above-noted, most likely this is alcohol related but other etiology cannot be ruled out such as acute hepatitis infectious or other etiologies will be consider we will plan on doing full workup, patient was advised to stop drinking completely Plan 42-year-old male with long history of alcohol dependence greater than 20 years multiple drinks at least 4 times a day. No previous EGD or colonoscopy. Noted fatigue for several months jaundice and abdominal bloating and swelling for the past 6 days worsening. Patient denies any diarrhea or constipation. Nausea for several months with nausea and vomiting for the past 10 days. Current hemoglobin is 12.4 patient denies any obvious bleeding. Mild leukocytosis with white count 14.8. Labs show bilirubin 21, AST 302, ALT 38, alkaline phosphatase 277,, coagulopathy with increased INR 2.2. Abdominal CT done on 07/29/17 shows an enlarged liver with diffuse decreased attenuation suggestive of fatty infiltration or diffuse hepatocellular disease. Recannulization of the umbilical vein as well as varices throughout the peritoneum. Mild splenomegaly, suggestive of portal hypertension. Clinical correlation is recommended. Peak walled gallbladder with minimal tayler- cholecystic fluid., If there is clinical concern for cholecystitis, a hepatobiliary scan may be helpful to confirm cystic duct stricture. Ascites within the abdomen and pelvis. Mild diffuse colonic wall thickening suggesting possible colitis. 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
[2017-07-30 17:44] VITALS: RESP 18
[2017-07-30 18:00] VITALS: BP 150/96; PULSE 99; RESP 16; TEMP 98; O2SAT 100
[2017-07-30 21:50] VITALS: BP 132/75; PULSE 98; RESP 18; TEMP 97.4; O2SAT 97
[2017-07-31 01:00] VITALS: BP 118/69; PULSE 96; RESP 18; O2SAT 96
[2017-07-31] MEDS: metroNIDAZOLE 500 MG TAB PO SCH ×2 (05:21→12:56)
[2017-07-31] MEDS: CIPROFLOXACIN 400 MG PREMIX 200 ML IV SCH ×2 (05:21→14:18)
[2017-07-31 08:00] VITALS: BP 148/90; PULSE 100; RESP 16; TEMP 98.6; O2SAT 97
[2017-07-31] MEDS: SPIRONOLACTONE 25 MG TAB PO SCH (09:05)
[2017-07-31] MEDS: POTASSIUM CHLORIDE 20 MEQ CONTROLLED RELEASE TAB PO SCH (09:05)
[2017-07-31] MEDS: SODIUM CHLORIDE 0.9% FLUSH 10 ML FLUSH IV FLUSH SCH (09:06)
[2017-07-31] MEDS: POTASSIUM PHOSPHATE MONOBASIC 500 MG TAB PO SCH (09:06)
[2017-07-31] MEDS: LACTULOSE SYRUP 20 GM/30 ML CUP PO SCH (09:06)
[2017-07-31 09:19] LABS: ALBUMIN 1.4 GM/DL (3.4-5.0); ALKALINE PHOSPHATASE 212 U/L (45-117); ALT (GPT) 31 U/L (10-53); AST (GOT) 221 U/L (15-37); BICARBONATE 28.6 MEQ/L (21.0-32.0); BLOOD UREA NITROGEN 3 MG/DL (7-18); CALCIUM 7.6 MG/DL (8.5-10.1); CHLORIDE 98 MEQ/L (98-107); CREATININE 0.82 MG/DL (0.50-1.00); GLOMERULAR FILTRATION RATE 76 ML/MIN (>89); GLUCOSE,RANDOM 84 MG/DL (74-106); SODIUM (NA) 134 MEQ/L (136-145); TOTAL PROTEIN 7.4 GM/DL (6.4-8.2)
[2017-07-31] MEDS ORDERED: POTASSIUM CHLORIDE 10 MEQ CONTROLLED RELEASE TAB PO ONE (10:30)
[2017-07-31] MEDS ORDERED: CALCIUM GLUCONATE INJ 1 GM in DEXTROSE 5% IN WATER 100ML INJ 100 ML IV ONE ×2 (11:00)
--- NOTE | 2017-07-31 11:32 | HHI.DCPOC ---
Discharge Care Plan Diagnosis: (1) Hepatic failure (2) Hypokalemia (3) UTI (urinary tract infection) Goals to Promote Your Health * To prevent worsening of your condition and complications * To maintain your health at the optimal level Directions to Meet Your Goals Take your medications as prescribed Follow your dietary instruction Follow activity as directed Keep your appointments as scheduled Take your immunizations and boosters as scheduled If your symptoms worsen call your PCP, if no PCP go to Urgent Care Center or Emergency Room Smoking is Dangerous to Your Health. Avoid second hand smoke Call the 24-hour hour crisis hotline for domestic abuse at Chloe Chamberlain MD Jul 31, 2017 11:31
[2017-07-31] MEDS ORDERED: K-PHTAB PO (11:34)
[2017-07-31] MEDS ORDERED: Lactulose Liq PO (11:34)
[2017-07-31] MEDS ORDERED: CIPR-9 PO (11:34)
[2017-07-31] MEDS ORDERED: METR-1 PO (11:34)
[2017-07-31] MEDS ORDERED: CARV3.125 PO (11:34)
[2017-07-31] MEDS ORDERED: SPIR25 PO (11:34)
--- NOTE | 2017-07-31 11:36 | HHI.DS ---
Discharge Summary Admission Date Jul 29, 2017 at 13:58 Discharge Date: Jul 31, 2017 Admitting Diagnosis JAUNDICE (1) Abdominal pain ICD Code: R10.9 - Unspecified abdominal pain (2) UTI (urinary tract infection) ICD Code: N39.0 - Urinary tract infection, site not specified Status: Acute (3) Jaundice ICD Code: R17 - Unspecified jaundice Status: Acute (4) Colitis ICD Code: K52.9 - Noninfective gastroenteritis and colitis, unspecified (5) Hepatic failure ICD Code: K72.90 - Hepatic failure, unspecified without coma (6) Hypokalemia ICD Code: E87.6 - Hypokalemia Procedures none Brief History - From Admission Patient seen and evaluated today in follow-up for jaundice. She has come to the emergency room complaining of vaginal bleeding and epistaxis with yellow eyes for the last several days. She drinks quite a bit of rum daily for the last 20 years although for the last 10 days she has been abstinent because she has been too nauseated to drink. She lives with her and recently relocated from [place]. She has not had any liver failure probably from alcohol dependency. She is recommended to be admitted to the hospital for further evaluation. CT and pelvis that showed some evidence of colitis the patient is septic on exam. She denies vomiting or intestinal bleeding. She has noted some easy bruising and yellow eyes. For this she came to the hospital and was found to have increased heart rate and LFTs as well as an elevated ammonia. Patient appears to have acute onset of CBC/BMP: 07/30/17 0607 07/31/17 0745 Significant Findings Laboratory Tests Test 07/29/17 12:05 07/29/17 12:20 07/29/17 13:00 07/29/17 15:17 Urine Color BROWN (YELLW/STRAW) Urine Protein 30 mg/dL (NEG-TRACE) Urine Glucose (UA) 100 mg/dL (NEG) Urine Ketones 15 mg/dL (NEG) Urine Occult Blood MOD (NEG) Urine Nitrite POS (NEG) Urine Bilirubin LARGE (NEG) Urine Leukocyte Esterase MOD (NEG) Urine WBC 15-19 /hpf (0-5) Urine Bacteria MOD /hpf (NONE) White Blood Count 14.8 TH/MM3 (4.0-11.0) Red Blood Count 3.78 MIL/MM3 (4.00-5.30) Red Cell Distribution Width 19.7 % (11.6-17.2) Platelet Count 113 TH/MM3 (150-450) Neutrophils (%) (Auto) 79.0 % (16.0-70.0) Monocytes (%) (Auto) 9.6 % (0.0-8.0) Neutrophils # (Auto) 11.7 TH/MM3 (1.8-7.7) Monocytes # (Auto) 1.4 TH/MM3 (0-0.9) Prothrombin Time 22.1 SEC (9.8-11.6) Activated Partial Thromboplast Time 34.1 SEC (24.3-30.1) Creatinine 1.10 MG/DL (0.50-1.00) Total Protein 8.6 GM/DL (6.4-8.2) Albumin 1.7 GM/DL (3.4-5.0) 1.6 GM/DL (3.4-5.0) Calcium Level 7.4 MG/DL (8.5-10.1) Magnesium Level 1.4 MG/DL (1.5-2.5) Alkaline Phosphatase 277 U/L (45-117) 256 U/L (45-117) Aspartate Amino Transf (AST/SGOT) 302 U/L (15-37) 283 U/L (15-37) Total Bilirubin 21.0 MG/DL (0.2-1.0) 19.9 MG/DL (0.2-1.0) Sodium Level 130 MEQ/L (136-145) Potassium Level 2.7 MEQ/L (3.5-5.1) Chloride Level 90 MEQ/L (98-107) Estimat Glomerular Filtration Rate 54 ML/MIN (>89) Ammonia 45 MCMOL/L (11-32) Phosphorus Level 1.7 MG/DL (2.5-4.9) Iron Level 44 MCG/DL (50-170) Total Iron Binding Capacity 122 MCG/DL (250-450) Ferritin 1028 NG/ML (8-252) Direct Bilirubin 15.2 MG/DL (0.0-0.2) Indirect Bilirubin 4.7 MG/DL (0.0-0.8) Hepatitis C IgG Antibody REACTIVE (NONREACTIVE) Test 07/29/17 18:35 07/30/17 06:07 07/30/17 10:52 07/30/17 12:23 White Blood Count 13.1 TH/MM3 (4.0-11.0) Red Blood Count 3.51 MIL/MM3 (4.00-5.30) Hemoglobin 11.4 GM/DL (11.6-15.3) Hematocrit 34.0 % (35.0-46.0) Red Cell Distribution Width 19.6 % (11.6-17.2) Platelet Count 106 TH/MM3 (150-450) Neutrophils (%) (Auto) 75.8 % (16.0-70.0) Monocytes (%) (Auto) 8.7 % (0.0-8.0) Neutrophils # (Auto) 10.0 TH/MM3 (1.8-7.7) Monocytes # (Auto) 1.1 TH/MM3 (0-0.9) Blood Urea Nitrogen 5 MG/DL (7-18) Albumin 1.5 GM/DL (3.4-5.0) Calcium Level 7.1 MG/DL (8.5-10.1) Alkaline Phosphatase 244 U/L (45-117) Aspartate Amino Transf (AST/SGOT) 252 U/L (15-37) Total Bilirubin 19.9 MG/DL (0.2-1.0) Sodium Level 133 MEQ/L (136-145) Potassium Level 2.7 MEQ/L (3.5-5.1) Chloride Level 94 MEQ/L (98-107) Estimat Glomerular Filtration Rate 68 ML/MIN (>89) Protein Corrected Calcium 6.9 MG/DL (8.5-10.1) Phosphorus Level 1.2 MG/DL (2.5-4.9) Ammonia 67 MCMOL/L (11-32) Test 07/31/17 07:45 07/31/17 11:10 Blood Urea Nitrogen 3 MG/DL (7-18) Albumin 1.4 GM/DL (3.4-5.0) Calcium Level 7.6 MG/DL (8.5-10.1) Alkaline Phosphatase 212 U/L (45-117) Aspartate Amino Transf (AST/SGOT) 221 U/L (15-37) Total Bilirubin 20.0 MG/DL (0.2-1.0) Sodium Level 134 MEQ/L (136-145) Potassium Level 2.7 MEQ/L (3.5-5.1) Estimat Glomerular Filtration Rate 76 ML/MIN (>89) Ammonia 56 MCMOL/L (11-32) Imaging Last Impressions Cholangiopancreatography MRI 07/30/17 0000 Signed Impressions: Service Date/Time: Sunday, July 30, 2017 09:57 - CONCLUSION: 1. Ascities 2. Prominent gallbladder and gallbladder wall. No gallstones. 3. Normal common duct 4. Pancreas poorly seen because of motion Josh Post MD FACR Abdomen/Pelvis CT 07/29/17 1208 Signed Impressions: Service Date/Time: July 13:17 - CONCLUSION: 1. Enlarged liver with diffuse decreased attenuation suggestive of fatty infiltration or diffuse hepatocellular disease. Recanalization of the umbilical vein as well as varices throughout the peritoneum. Mild splenomegaly. Findings are suggestive of portal hypertension. Clinical correlation is recommended. 2. Thick-walled gallbladder with minimal pericholecystic fluid. If there is clinical concern for acute cholecystitis, a hepatobiliary scan may be helpful to confirm cystic duct structure. 3. Some ascites within the abdomen or pelvis. 4. Mild diffuse colonic wall thickening suggesting possible colitis. Ramon Vivas MD PE at Discharge GENERAL: This is a well-nourished, well-developed patient, jaundiced CARDIOVASCULAR: Regular rate and rhythm without murmurs, gallops, or rubs. RESPIRATORY: Clear to auscultation. Breath sounds equal bilaterally. No wheezes , rales, or rhonchi. GASTROINTESTINAL: Abdomen soft, non-tender, mildly distended. Normal active bowel sounds MUSCULOSKELETAL: Extremities without clubbing, cyanosis, or edema. NEURO: Alert & Oriented x4 to person, place, time, situation. Moves all ext x4 Hospital Course This patient is a 42-year-old female with new onset of liver failure likely due to a combination of alcohol dependency issues and hepatitis C. Clinically she is greatly improved after treatment for gram-negative milena UTI and colitis with antibiotics. Patient does have elevated LFTs which are stable if not slightly improved. She was seen by gastroenterology. He is instructed to follow-up with the primary gastroenterology team as an outpatient and to continue abstinence from alcohol. Patient also was treated for electrolyte disturbances Pt Condition on Discharge: Good Discharge Disposition: Discharge Home Discharge Time: <= 30 minutes Discharge Instructions DIET: Follow Instructions for: Heart Healthy Diet Additional Diet Instructions: avoid alcohol Activities you can perform: Regular-No Restrictions Follow up Referrals: Gastroenterology - 1 Week with Mayda Jane MD New Medications: Carvedilol (Coreg) 3.125 Mg Tab 3.125 MG PO BID for portal and sytemic HTN, #60 TAB 0 Refills Ciprofloxacin (Cipro) 500 Mg Tab 500 MG PO BID for Infection, #10 TAB 0 Refills Metronidazole (Flagyl) 500 Mg Tab 500 MG PO Q8HR for Infection, #30 TAB Potassium Phosphate Monobasic (K-Phos) 500 Mg Tab 500 MG PO Q12HR for potassium, #14 TAB Spironolactone (Aldactone) 25 Mg Tab 25 MG PO BID@09,18 for fluid, #62 TAB [Lactulose Liq] () 30 ML SYRP 30 ML PO DAILY for ammonia, #31 Chloe Chamberlain MD Jul 31, 2017 11:36
[2017-07-31 12:00] VITALS: BP 129/87; PULSE 99; RESP 16; TEMP 98; O2SAT 98
[2017-07-31] MEDS ORDERED: CARVEDILOL 3.125 MG TAB PO SCH (12:00)
--- NOTE | 2017-07-31 13:01 | HHI.GIFU ---
GI Follow-up Note Consult Follow-up Subjective: Patient laying in bed comfortably, ready to go home .Denies nausea , vomiting, abdominal pain or any other symptoms.She will quit drinking once discharged.Hepatitis c viral load in progress . MRCP /ct showed abnormal gb- patient has no clinical signs of cholecystitis, blood work suggesting etoh hepatitis , liver cirrhosis Objective: PHYSICAL EXAMINATION: Vitals signs stable No fever Vital Signs Date Time Temp Pulse Resp B/P (MAP) Pulse Ox O2 Delivery O2 Flow Rate FiO2 07/31/17 12:00 98.0 99 16 129/87 (101) 98 07/31/17 08:00 98.6 100 16 148/90 (109) 97 HEENT: Pupils round and reactive to light; normocephalic; atraumatic; jaundice. Throat is clear. NECK: Neck is supple, no JVD, no lymphadenopathy. CHEST: Chest is clear to auscultation and percussion. CARDIAC: Regular rate and rhythm with no murmur gallop or rubs. ABDOMEN: Soft, distended, nontender; hepatosplenomegaly; bowel sounds are present in all four quadrants. EXTREMITIES: No clubbing, cyanosis, or edema. SKIN: Normal; no rash; no jaundice. 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 Available Data (labs, X- Rays, Procedues) : Laboratory Tests Test 07/29/17 13:00 07/29/17 15:17 07/29/17 18:35 07/30/17 06:07 Ammonia 45 MCMOL/L Phosphorus Level 1.7 MG/DL 1.2 MG/DL Iron Level 44 MCG/DL Total Iron Binding Capacity 122 MCG/DL Percent Iron Saturation 36.1 % Ferritin 1028 NG/ML Total Bilirubin 19.9 MG/DL 19.9 MG/DL Direct Bilirubin 15.2 MG/DL Indirect Bilirubin 4.7 MG/DL Aspartate Amino Transf (AST/SGOT) 283 U/L 252 U/L Alanine Aminotransferase (ALT/SGPT) 38 U/L 34 U/L Alkaline Phosphatase 256 U/L 244 U/L Total Creatine Kinase 149 U/L Total Protein 8.1 GM/DL 7.7 GM/DL Albumin 1.6 GM/DL 1.5 GM/DL Thyroid Stimulating Hormone 3rd Gen 2.560 uIU/ML Hepatitis A IgM Antibody NONREACTIVE Hepatitis B Surface Antigen NONREACTIVE Hepatitis B Core IgM Antibody NONREACTIVE Hepatitis C IgG Antibody REACTIVE Tumor Marker Alpha Fetoprotein 4.7 NG/ML Anti-Nuclear Antibody Screen NEG White Blood Count 13.1 TH/MM3 Red Blood Count 3.51 MIL/MM3 Hemoglobin 11.4 GM/DL Hematocrit 34.0 % Mean Corpuscular Volume 96.7 FL Mean Corpuscular Hemoglobin 32.5 PG Mean Corpuscular Hemoglobin Concent 33.6 % Red Cell Distribution Width 19.6 % Platelet Count 106 TH/MM3 Mean Platelet Volume 8.4 FL Neutrophils (%) (Auto) 75.8 % Lymphocytes (%) (Auto) 12.9 % Monocytes (%) (Auto) 8.7 % Eosinophils (%) (Auto) 1.8 % Basophils (%) (Auto) 0.8 % Neutrophils # (Auto) 10.0 TH/MM3 Lymphocytes # (Auto) 1.7 TH/MM3 Monocytes # (Auto) 1.1 TH/MM3 Eosinophils # (Auto) 0.2 TH/MM3 Basophils # (Auto) 0.1 TH/MM3 CBC Comment DIFF FINAL Differential Comment Blood Urea Nitrogen 5 MG/DL Creatinine 0.91 MG/DL Random Glucose 90 MG/DL Calcium Level 7.1 MG/DL Sodium Level 133 MEQ/L Potassium Level 2.7 MEQ/L Chloride Level 94 MEQ/L Carbon Dioxide Level 28.7 MEQ/L Anion Gap 10 MEQ/L Estimat Glomerular Filtration Rate 68 ML/MIN Protein Corrected Calcium 6.9 MG/DL Magnesium Level 1.8 MG/DL Test 07/30/17 10:52 07/30/17 12:23 07/31/17 07:45 07/31/17 11:10 Ammonia 67 MCMOL/L 56 MCMOL/L Blood Urea Nitrogen 3 MG/DL Creatinine 0.82 MG/DL Random Glucose 84 MG/DL Total Protein 7.4 GM/DL Albumin 1.4 GM/DL Calcium Level 7.6 MG/DL Alkaline Phosphatase 212 U/L Aspartate Amino Transf (AST/SGOT) 221 U/L Alanine Aminotransferase (ALT/SGPT) 31 U/L Total Bilirubin 20.0 MG/DL Sodium Level 134 MEQ/L Potassium Level 2.7 MEQ/L Chloride Level 98 MEQ/L Carbon Dioxide Level 28.6 MEQ/L Anion Gap 7 MEQ/L Estimat Glomerular Filtration Rate 76 ML/MIN ASSESSMENT/PLAN: liver cirrhosis secondary etoh , possible superimposed hep c etoh hepatis liver failure secondary the above uti Recommendations fu hep c viral load avoid etoh, hepatotoxics fu gi next week with labs cbc, cmp, pt/inr start Pentoxifylline , not a candidate for steroids now call if not better It was a pleasure seeing Ceci Chamberlain. Thank you for this consult. Entered by: Nan Rankin MD Jul 31, 2017 1:01 pm
[2017-07-31] MEDS ORDERED: PENT400T PO (13:08)
[2017-07-31 13:59] LABS: SMOOTH MUSCLE TOTAL AUTOABS Negative (Negative)
[2017-07-31] MEDS ORDERED: PENTOXIFYLLINE 400 MG CONTROLLED RELEASE TAB PO SCH (14:00)
[2017-08-03 23:53] LABS: MITOCHONDRIAL ABS LESS THAN 20.0 U (<=20.0)
[2017-08-06 09:55] LABS: HCV RNA PCR IU/ML LESS THAN 15 IU/mL (Not Detected)
--- NOTE | 2017-08-11 15:03 | PQ ---
Physician Query Response Document PATIENT: TATI CHAMBERLAIN : 1975 ADMIT DATE: 07/29/2017 1:58 PM DISCH DATE: 07/31/2017 3:34 PM RESPONDING PROVIDER #: alisson QUERY TEXT: Clarification of Clinical Diagnostic Findings Please clarify documentation or clinical relevance for the clinical / diagnostic findings or whether those are insignificant or unable to be further specified. SEPSIS WAS NOT DOCUMENTED ON D/C SUMMARY. PLEASE CLARIFY IS SEPSIS WAS RULED IN, RULED OUT OR MORE AP POPRIATED DIAGNOSIS MADE AFTER STUDY. Your prompt response is appreciated, please do not hesitate to contact the CDI/Coding Hotline with an y questions, comments and/or concerns you may have at ext. [phone]. The patient's Clinical Indicators include: H (4) Colitis ICD Code: K52.9 - Noninfective gastroenteritis and colitis, unspecified Plan: With evidence of sepsis and leukocytosis, tachycardia Continue IV metronidazole and ciprofloxacin DISCHARGE SUMMARY: Hospital Course This patient is a 42-year-old female with new onset of liver failure likely due to a combination of a lcohol dependency issues and hepatitis C. Clinically she is greatly improved after treatment for gra m-negative milena UTI and colitis with antibiotics. Patient does have elevated LFTs which are stable if not slightly improved. She was seen by gastroenterology Urine Culture grew E. Coli. Patient afebrile throughout stay Diagnosed with hepatic failure, hep C, alcholic cirrhosis with ascites, portal htn, electrolyte abnor malities, abnormal coagulation. Query created by: Aura Winn on 08/10/2017 10:23 AM RESPONSE TEXT: Provider disagreed with this CDI query. Electronically signed by: Clhoe Chamberlain MD 08/11/2017 2:59 PM
== END 2017-07-31 15:34 | disposition home or self-care (01) | DRG 433 ==
LOC: PHED 11:39 → PHEDA 13:58 → PH3B 15:58
PROVIDERS: ADMIT Hospitalist; ATTEND Hospitalist
DX: K70.40 Alcoholic hepatic failure without coma (principal); D68.9 Coagulation defect, unspecified; K70.31 Alcoholic cirrhosis of liver with ascites; K76.6 Portal hypertension; R16.1 Splenomegaly, not elsewhere classified; E83.39 Other disorders of phosphorus metabolism; N39.0 Urinary tract infection, site not specified; K52.9 Noninfective gastroenteritis and colitis, unspecified; N93.9 Abnormal uterine and vaginal bleeding, unspecified; R04.0 Epistaxis; F10.20 Alcohol dependence, uncomplicated; I78.1 Nevus, non-neoplastic; E87.6 Hypokalemia; B19.20 Unspecified viral hepatitis C without hepatic coma; B96.20 Unspecified Escherichia coli [E. coli] as the cause of diseases classified elsewhere
CPT/HCPCS: 74177; 74181; 76377; 80053; 80074; 80076; 81001; 82105; 82140; 82248; 82390; 82550; 82728; 83520; 83540; 83550; 83735; 84100; 84443; 84703; 85025; 85610; 85730; 86038; 86255; 87077; 87086; 87186; 87522; 87902; 96361; 96365; J0610; J0696; J0744; J1940; J3475; J3480; J7030; Q9967

== ENCOUNTER 2017-08-11 16:58 | Observation (INO) | payer BC ==
[~2017-08-11] VITALS: Ht 157.5 cm; Wt 90.3 kg
[~2017-08-11 16:58] MED LIST: CARV3.125 PO; CIPR-9 PO; K-PHTAB PO; Lactulose Liq PO; METR-1 PO; PENT400T PO; SPIR25 PO
[2017-08-11 17:03] VITALS: BP 140/82; PULSE 94; RESP 16; TEMP 98; O2SAT 99
--- NOTE | 2017-08-11 17:47 | PD ---
HPI Chief Complaint: Abdominal Pain Time Seen by Provider: 17:46 Travel History International Travel<30 days: No Contact w/Intl Traveler<30days: No Traveled to known affect area: No History of Present Illness HPI 42-year-old female came to the emergency room with history of jaundice. Patient was recently diagnosed a month ago with hepatitis C and portal hypertension. She has been on some medications. She had some blood test ordered by her primary care since for past few days she has been having some abdominal bloating. Today she went to see her primary care and the nurse practitioner went over her blood test results and asked her to go to the emergency room to get a CAT scan of her abdomen and pelvis. Copy of her labs has been sent with her. Her WBC and blood is elevated. Liver function test is elevated. Ammonia seems to be high as well. Patient is otherwise awake and answering questions. Vital signs are relatively stable. Patient describes the abdominal discomfort generalized with no aggravating or relieving factors identified. No radiation of the pain. She has been diagnosed with ascites but has not had a paracentesis done yet. She has an appointment with a GI specialist coming up next week. [facility] Past Medical History Narrative Medical List of her past medical, surgical, social and family history is reviewed from the nursing note. Diminished Hearing: No ?: Not LMP: 3 DAYS Past Surgical History Section: Yes Social History Alcohol Use: Yes (SOC) Tobacco Use: No Substance Use: No Allergies-Medications (Allergen,Severity, Reaction): Coded Allergies: No Known Allergies (Unverified , 08/11/17) Comments No known drug allergies. Reported Meds & Prescriptions Reported Meds & Active Scripts Active Pentoxifylline ER (Pentoxifylline) 400 Mg Tab 400 Mg PO TID Coreg (Carvedilol) 3.125 Mg Tab 3.125 Mg PO BID [Lactulose Liq] 30 ML Syrp 30 Ml PO DAILY K-Phos (Potassium Phosphate Monobasic) 500 Mg Tab 500 Mg PO Q12HR Narrative Medication List of her home medications reviewed from the nursing note. Review of Systems Except as stated in HPI: all other systems reviewed are Neg Gastrointestinal: Positive: Abdominal Pain Physical Exam Narrative GENERAL: Obese, lethargic, moderate distress, answering questions appropriately SKIN: Focused skin assessment warm/dry. Jaundice HEAD: Atraumatic. Normocephalic. EYES: Pupils equal and round. Scleral icterus present. No injection or drainage. ENT: No nasal bleeding or discharge. Mucous membranes pink and moist. NECK: Trachea midline. No JVD. CARDIOVASCULAR: Regular rate and rhythm. No murmur appreciated. RESPIRATORY: No accessory muscle use. Clear to auscultation. Breath sounds equal bilaterally. GASTROINTESTINAL: Abdomen soft, non-tender, distended. Hepatic and splenic margins not palpable. MUSCULOSKELETAL: No obvious deformities. No clubbing. No cyanosis. No edema. NEUROLOGICAL: Awake and alert. No obvious cranial nerve deficits. Motor grossly within normal limits. Normal speech. PSYCHIATRIC: Appropriate mood and affect; insight and judgment normal. Data Data Last Documented VS Vital Signs Date Time Temp Pulse Resp B/P (MAP) Pulse Ox O2 Delivery O2 Flow Rate FiO2 08/11/17 19:31 93 16 119/69 (86) 98 Room Air 08/11/17 17:03 98.0 Orders Orders Ammonia (08/11/17 18:39) Complete Blood Count With Diff (08/11/17 18:39) Comprehensive Metabolic Panel (08/11/17 18:39) Prothrombin Time / Inr (Pt) (08/11/17 18:39) Urinalysis - C+S If Indicated (08/11/17 18:39) Lactic Acid Sepsis Protocol (08/11/17 18:39) Blood Culture (08/11/17 18:39) Chest, Single Ap (08/11/17 18:39) Blood Glucose (08/11/17 18:39) Ecg Monitoring (08/11/17 18:39) Iv Access Insert/Monitor (08/11/17 18:39) Oximetry (08/11/17 18:39) Sodium Chloride 0.9% Flush (Ns Flush) (08/11/17 18:45) Ct Abd/Pel W/O Iv Contrast (08/11/17 ) Direct Bilirubin (08/11/17 18:39) Ed Urine Pregnancytest Poc (08/11/17 18:48) Urine Culture (08/11/17 18:15) Sodium Chlor 0.9% 1000 Ml Inj (Ns 1000 M (08/11/17 19:45) Ceftriaxone Inj (Rocephin Inj) (08/11/17 20:00) ^ Straight Catheter (08/11/17 19:58) Admit Order (Ed Use Only) (08/11/17 20:05) Labs Laboratory Tests Test 08/11/17 18:15 08/11/17 19:20 White Blood Count 22.0 TH/MM3 Red Blood Count 3.52 MIL/MM3 Hemoglobin 12.6 GM/DL Hematocrit 36.2 % Mean Corpuscular Volume 102.8 FL Mean Corpuscular Hemoglobin 35.9 PG Mean Corpuscular Hemoglobin Concent 35.0 % Red Cell Distribution Width 18.9 % Platelet Count 381 TH/MM3 Mean Platelet Volume 8.5 FL CBC Comment AUTO DIFF Differential Total Cells Counted 100 Neutrophils % (Manual) 78 % Band Neutrophils % 2 % Lymphocytes % 10 % Monocytes % 6 % Eosinophils % 1 % Basophils % 1 % Neutrophils # (Manual) 18.0 TH/MM3 Metamyelocytes 1 % Myelocytes 1 % Differential Comment FINAL DIFF MANUAL Platelet Estimate NORMAL Platelet Morphology Comment NORMAL Red Cell Morphology Comment NORMAL Prothrombin Time 19.8 SEC Prothromb Time International Ratio 2.0 RATIO Urine Color OTHER Urine Turbidity CLEAR Urine pH 6.5 Urine Specific [place] 1.010 Urine Protein 100 mg/dL Urine Glucose (UA) 250 mg/dL Urine Ketones 15 mg/dL Urine Occult Blood SMALL Urine Nitrite POS Urine Bilirubin LARGE Urine Urobilinogen 1.0 MG/DL Urine Leukocyte Esterase TRACE Urine RBC 4-9 /hpf Urine WBC 3-5 /hpf Urine WBC Clumps OCC Urine Squamous Epithelial Cells 0-5 /hpf Urine Transitional Epithelial Cells 0-5 /hpf Urine Renal Epithelial Cells 0-5 /hpf Urine Hyaline Casts 0-2 /lpf Urine White Blood Cell Casts 0-2 /lpf Microscopic Urinalysis Comment CATH-CULTURE IND Blood Urea Nitrogen 10 MG/DL Creatinine 0.89 MG/DL Random Glucose 93 MG/DL Total Protein 8.6 GM/DL Albumin 1.8 GM/DL Calcium Level 8.4 MG/DL Alkaline Phosphatase 159 U/L Aspartate Amino Transf (AST/SGOT) 286 U/L Alanine Aminotransferase (ALT/SGPT) 52 U/L Total Bilirubin 13.9 MG/DL Direct Bilirubin 9.2 MG/DL Sodium Level 133 MEQ/L Potassium Level 4.2 MEQ/L Chloride Level 99 MEQ/L Carbon Dioxide Level 24.7 MEQ/L Anion Gap 9 MEQ/L Estimat Glomerular Filtration Rate 70 ML/MIN Lactic Acid Level 1.6 mmol/L Ammonia 13 MCMOL/L [facility] Medical Decision Making Medical Screen Exam Complete: Yes Emergency Medical Condition: Yes Medical Record Reviewed: Yes Differential Diagnosis Azotemia, sepsis, UTI Narrative Course 7:57 PM blood test results are back. Patient has significant leukocytosis which is worse from past 2 days as per her lab work. LFTs are elevated especially the bilirubin. UA suggestive of UTI. CT scan of the abdomen and pelvis shows ascites as per the radiologist and otherwise unremarkable. I have ordered a liter of IV fluid and IV Rocephin. Lactic acid is within normal limit. I would like to admit this patient at this point. Awaiting for the hospitalist to call back. Procedures EKG Prior to Arrival: No Diagnosis Primary Impression: Leukocytosis Qualified Codes: D72.829 - Elevated white blood cell count, unspecified Additional Impressions: UTI (urinary tract infection) Qualified Codes: N39.0 - Urinary tract infection, site not specified Jaundice Hepatitis C Qualified Codes: B17.10 - Acute hepatitis C without hepatic coma Admitting Information Admitting Physician Requests: Admit Scripts Pantoprazole (Pantoprazole) 40 Mg Tab 40 MG PO DAILY for gi, #31 TAB Prov: Chloe Chamberlain MD 08/12/17 Furosemide (Furosemide) 20 Mg Tab 20 MG PO DAILY for fluid, #31 TAB Prov: Chloe Chamberlain MD 08/12/17 [Lactulose Liq] 30 ML SYRP No Conflict Check 30 ML PO TID for gi, #62 Prov: Chloe Chamberlain MD 08/12/17 Spironolactone (Aldactone) 50 Mg Tab 50 MG PO BID@ for fluid, #62 TAB Prov: Chloe Chamberlain MD 08/12/17 Jair Fabian MD Aug 11, 2017 17:47
[2017-08-11] MEDS ORDERED: SODIUM CHLORIDE 0.9% FLUSH 10 ML FLUSH IV FLUSH PRN ×2 (18:45→20:15)
[2017-08-11 18:59] LABS: BILIRUBIN, URINE LARGE (NEG); BLOOD, URINE SMALL (NEG); GLUCOSE,URINE 250 mg/dL (NEG); KETONE, URINE 15 mg/dL (NEG); NITRITE,URINE POS (NEG); PH, URINE 6.5 (5.0-8.5); URINE COLOR OTHER (YELLW/STRAW); URINE LEUKOCYTE ESTERASE TRACE (NEG)
[2017-08-11 19:05] LABS: CHLORIDE 99 MEQ/L (98-107); HYALINE CAST, URINE 0-2 /lpf (RARE); SODIUM (NA) 133 MEQ/L (136-145); SQUAMOUS EPITHELIAL CELL URINE 0-5 /hpf (0-5); WHITE BLOOD CELL CAST, URINE 0-2 /lpf; WHITE BLOOD CELL CLUMPS OCC
[2017-08-11 19:06] LABS: RENAL EPITHELIAL CELLS 0-5 /hpf; TRANSITIONAL EPI CELLS, URINE 0-5 /hpf
[2017-08-11 19:09] LABS: ALBUMIN 1.8 GM/DL (3.4-5.0); BICARBONATE 24.7 MEQ/L (21.0-32.0); BLOOD UREA NITROGEN 10 MG/DL (7-18); CALCIUM 8.4 MG/DL (8.5-10.1); GLUCOSE,RANDOM 93 MG/DL (74-106); PROTHROMBIN TIME - PATIENT 19.8 SEC (9.8-11.6)
[2017-08-11 19:12] LABS: ALT (GPT) 52 U/L (10-53); AST (GOT) 286 U/L (15-37); CREATININE 0.89 MG/DL (0.50-1.00); GLOMERULAR FILTRATION RATE 70 ML/MIN (>89)
[2017-08-11 19:14] LABS: TOTAL BILIRUBIN ADULT 13.9 MG/DL (0.2-1.0); TOTAL PROTEIN 8.6 GM/DL (6.4-8.2)
[2017-08-11 19:15] LABS: ALKALINE PHOSPHATASE 159 U/L (45-117); HEMATOCRIT 36.2 % (35.0-46.0); HEMOGLOBIN 12.6 GM/DL (11.6-15.3); MEAN CELL VOLUME 102.8 FL (80.0-100.0); MEAN CORPUSCULAR HEMOGLOBIN 35.9 PG (27.0-34.0); MEAN PLATELET VOLUME 8.5 FL (7.0-11.0); PLATELET COUNT 381 TH/MM3 (150-450); RED BLOOD COUNT 3.52 MIL/MM3 (4.00-5.30); RED CELL DISTRIBUTION WIDTH 18.9 % (11.6-17.2)
--- NOTE | 2017-08-11 19:22 | RADRPT ---
EXAM DATE/TIME: 08/11/2017 18:57 [facility] COMPARISON: No previous studies available for comparison. INDICATIONS : Cough. MEDICAL HISTORY : None. SURGICAL HISTORY : None. ENCOUNTER: Initial ACUITY: 1 day PAIN SCORE: 0/10 LOCATION: Bilateral chest FINDINGS: A single view of the chest demonstrates the lungs to be symmetrically aerated without evidence of mas s, infiltrate or effusion. The cardiomediastinal contours are unremarkable. Osseous structures are intact. CONCLUSION: No acute disease. Josh Post MD FACR on August 11, 2017 at 19:20 Board Certified Radiologist. This report was verified electronically.
[2017-08-11 19:31] VITALS: BP 119/69; PULSE 93; RESP 16; O2SAT 98
[2017-08-11 19:40] LABS: DIRECT BILIRUBIN ADULT 9.2 MG/DL (0.0-0.2)
[2017-08-11 19:44] LABS: BANDS 2 % (0-6); BASOPHILS 1 % (0-2); LYMPHOCYTES 10 % (9-44); METAMYELOCYTES 1 % (0-1); MONOCYTES 6 % (0-8); MYELOCYTES 1 % (0-0); POLYS (SEG NEUTROPHILS) 78 % (16-70)
[2017-08-11] MEDS ORDERED: SODIUM CHLOR 0.9% 1000 ML INJ 1,000 ML IV ONE (19:45)
--- NOTE | 2017-08-11 19:50 | RADRPT ---
EXAM DATE/TIME: 08/11/2017 19:18 [facility] COMPARISON: No previous studies available for comparison. INDICATIONS : Abdominal pain and bloating. ORAL CONTRAST: No oral contrast ingested. RADIATION DOSE: 23.15 CTDIvol (mGy) MEDICAL HISTORY : Hepatitis C. Cirrhosis. SURGICAL HISTORY : section. ENCOUNTER: Initial ACUITY: 2 days PAIN SCALE: 3/10 LOCATION: abdomen TECHNIQUE: Volumetric scanning of the abdomen and pelvis was performed. Using automated exposure control and ad justment of the mA and/or kV according to patient size, radiation dose was kept as low as reasonably achievable to obtain optimal diagnostic quality images. DICOM format image data is available electro nically for review and comparison. FINDINGS: Lungs are clear. Liver is enlarged and free of focal defects. Trace ascites is evident. The gallbladder is unremarka ble. Spleen and pancreas appear normal Adrenal glands are unremarkable There is no renal mass Mild mesenteric induration The pelvis, uterus and adnexal regions are unremarkable. Trace fluid is evident Review of bone windows reveals only degenerative changes. CONCLUSION: Trace ascites otherwise negative. Josh Post MD FACR on August 11, 2017 at 19:45 Board Certified Radiologist. This report was verified electronically.
[2017-08-11] MEDS ORDERED: cefTRIAXone INJ 1,000 MG in SODIUM CHLORIDE 0.9% INJ 100 ML IV ONE (20:00)
[2017-08-11] MEDS ORDERED: SODIUM CHLOR 0.9% 1000 ML INJ 1,000 ML IV SCH (20:06)
[2017-08-11] MEDS ORDERED: NALOXONE HCL 0.4 MG/ML AMP IV PUSH PRN (20:15)
[2017-08-11] MEDS ORDERED: PROCHLORPERAZINE 25 MG SUPP RECTAL PRN (20:15)
[2017-08-11] MEDS: SODIUM CHLOR 0.9% 1000 ML INJ 1,000 ML IV SCH (21:26)
[2017-08-11] MEDS: SODIUM CHLORIDE 0.9% FLUSH 10 ML FLUSH IV FLUSH SCH (21:27)
[2017-08-11 22:25] VITALS: BP 121/71; PULSE 97; RESP 20; TEMP 97.6; O2SAT 96
[2017-08-12 06:47] LABS: AUTOMATED NEUTROPHIL # 13.1 TH/MM3 (1.8-7.7); BASOPHIL # 0.1 TH/MM3 (0-0.2); BASOPHIL % 0.3 % (0.0-2.0); EOSINOPHIL # 0.3 TH/MM3 (0-0.4); EOSINOPHIL % 1.8 % (0.0-4.0); HEMATOCRIT 29.9 % (35.0-46.0); HEMOGLOBIN 10.5 GM/DL (11.6-15.3); LYMPH % 15.3 % (9.0-44.0); LYMPHOCYTE # 2.7 TH/MM3 (1.0-4.8); MEAN CELL VOLUME 103.1 FL (80.0-100.0); MEAN CORPUSCULAR HEMOGLOBIN 36.3 PG (27.0-34.0); MEAN CORPUSCULAR HGB CONC 35.2 % (32.0-36.0); MEAN PLATELET VOLUME 7.5 FL (7.0-11.0); MONO % 8.6 % (0.0-8.0); MONOCYTE # 1.5 TH/MM3 (0-0.9); PLATELET COUNT 296 TH/MM3 (150-450); RED CELL DISTRIBUTION WIDTH 19.1 % (11.6-17.2); WHITE BLOOD COUNT 17.7 TH/MM3 (4.0-11.0)
[2017-08-12 06:57] LABS: CHLORIDE 105 MEQ/L (98-107); SODIUM (NA) 138 MEQ/L (136-145)
[2017-08-12 07:04] LABS: ALBUMIN 1.5 GM/DL (3.4-5.0); BICARBONATE 25.2 MEQ/L (21.0-32.0); BLOOD UREA NITROGEN 9 MG/DL (7-18); CALCIUM 7.7 MG/DL (8.5-10.1); GLUCOSE,RANDOM 85 MG/DL (74-106)
[2017-08-12 07:07] LABS: ALT (GPT) 41 U/L (10-53); AST (GOT) 227 U/L (15-37); CREATININE 0.71 MG/DL (0.50-1.00); GLOMERULAR FILTRATION RATE 90 ML/MIN (>89)
[2017-08-12] MEDS: SODIUM CHLORIDE 0.9% FLUSH 10 ML FLUSH IV FLUSH SCH (07:19)
[2017-08-12 07:20] LABS: ALKALINE PHOSPHATASE 130 U/L (45-117); TOTAL PROTEIN 7.1 GM/DL (6.4-8.2)
[2017-08-12 07:50] VITALS: BP 115/84; PULSE 84; RESP 20; TEMP 97.8; O2SAT 98
--- NOTE | 2017-08-12 09:47 | PD.CONS ---
HPI History of Present Illness This is a 42 year old female who was admitted to the hospital 08/11 2017. Patient was recently hospitalized and discharged for hepatitis C along with some bloating and abnormal labs. She has been very dedicated taking her medications but states that she has had some uncontrolled nausea and vomiting especially with dose of lactulose, fatigue and malaise. She was seen last Wednesday per her PCP which decreased her lactulose dose in half, for the past 4 or 5 days which was more tolerable for her, but now symptoms are uncontrolled bloating. She has an appointment in the GI office tomorrow . Patient states she has been having 4 stools a day initially with her lactulose dose which has decreased to 2 times a day over the past 24-48 hours. She is chief complaint is uncontrolled bloating, generalized weakness, nausea and vomiting which is more controlled this morning. Patient does have loose stools secondary to her lactulose dose. Patient denies any fevers, chills, no dysphasia, no constipation. Abdominal discomfort is generalized and diffuse. Abdominal ultrasound shows trace of ascites otherwise unremarkable. (Lindsay Lazar) [facility] Past Medical History Recent hepatitis C and portal hypertension diagnosis Abdominal bloating Liver cirrhosis diagnostics been worked up secondary to probable alcohol Past Surgical History (Lindsay Lazar) Coded Allergies: No Known Allergies (Unverified , 08/11/17) Medications Administered Medications Medications (Trade) Dose Ordered Sig/Jermaine Route PRN Reason Start Time Stop Time Status Last Admin Dose Admin Sodium Chloride (NS Flush) 2 ml BID IV FLUSH 08/11/17 21:00 08/11/17 21:27 Sodium Chloride 1,000 ml @ 60 mls/hr [id number] IV 08/11/17 21:00 08/11/17 21:26 Family History No known colon cancer Social History Nonsmoker Previous alcohol dependence up until approximately one month ago No illicit drugs Currently lives with her (Lindsay Lazar) Review of Systems Constitutional: COMPLAINS OF: Fatigue, Change in appetite Gastrointestinal: COMPLAINS OF: Abdominal pain (Lindsay Lazar) GI Exam Vitals I&O Vital Signs Date Time Temp Pulse Resp B/P (MAP) Pulse Ox O2 Delivery O2 Flow Rate FiO2 08/12/17 07:50 97.8 84 20 115/84 (94) 98 08/11/17 22:25 97.6 97 20 121/71 (88) 96 08/11/17 22:23 08/11/17 19:31 93 16 119/69 (86) 98 Room Air 08/11/17 19:31 16 98 Room Air 08/11/17 17:03 98.0 94 16 140/82 (101) 99 I/O 08/11/17 08/11/17 08/11/17 08/12/17 08/12/17 08/12/17 07:00 15:00 23:00 07:00 15:00 23:00 Intake Total 1100 ml 328 ml Balance 1100 ml 328 ml Intake Oral 0 ml IV Total 1100 ml 328 ml # Voids 1 1 Imaging Last Impressions Chest X-Ray 08/11/17 1839 Signed Impressions: Service Date/Time: Friday, August 11, 2017 18:57 - CONCLUSION: No acute disease. Josh Post MD FACR Abdomen/Pelvis CT 08/11/17 0000 Signed Impressions: Service Date/Time: Friday, August 11, 2017 19:18 - CONCLUSION: Trace ascites otherwise negative. Josh Post MD FACR Laboratory Test 08/11/17 18:15 08/11/17 19:20 08/12/17 05:50 White Blood Count 22.0 TH/MM3 17.7 TH/MM3 Red Blood Count 3.52 MIL/MM3 2.90 MIL/MM3 Hemoglobin 12.6 GM/DL 10.5 GM/DL Hematocrit 36.2 % 29.9 % Mean Corpuscular Volume 102.8 FL 103.1 FL Mean Corpuscular Hemoglobin 35.9 PG 36.3 PG Mean Corpuscular Hemoglobin Concent 35.0 % 35.2 % Red Cell Distribution Width 18.9 % 19.1 % Platelet Count 381 TH/MM3 296 TH/MM3 Mean Platelet Volume 8.5 FL 7.5 FL CBC Comment AUTO DIFF DIFF FINAL Differential Total Cells Counted 100 Neutrophils % (Manual) 78 % Band Neutrophils % 2 % Lymphocytes % 10 % Monocytes % 6 % Eosinophils % 1 % Basophils % 1 % Neutrophils # (Manual) 18.0 TH/MM3 Metamyelocytes 1 % Myelocytes 1 % Differential Comment FINAL DIFF MANUAL Platelet Estimate NORMAL Platelet Morphology Comment NORMAL Red Cell Morphology Comment NORMAL Prothrombin Time 19.8 SEC Prothromb Time International Ratio 2.0 RATIO Urine Color OTHER Urine Turbidity CLEAR Urine pH 6.5 Urine Specific [place] 1.010 Urine Protein 100 mg/dL Urine Glucose (UA) 250 mg/dL Urine Ketones 15 mg/dL Urine Occult Blood SMALL Urine Nitrite POS Urine Bilirubin LARGE Urine Urobilinogen 1.0 MG/DL Urine Leukocyte Esterase TRACE Urine RBC 4-9 /hpf Urine WBC 3-5 /hpf Urine WBC Clumps OCC Urine Squamous Epithelial Cells 0-5 /hpf Urine Transitional Epithelial Cells 0-5 /hpf Urine Renal Epithelial Cells 0-5 /hpf Urine Hyaline Casts 0-2 /lpf Urine White Blood Cell Casts 0-2 /lpf Microscopic Urinalysis Comment CATH-CULTURE IND Blood Urea Nitrogen 10 MG/DL 9 MG/DL Creatinine 0.89 MG/DL 0.71 MG/DL Random Glucose 93 MG/DL 85 MG/DL Total Protein 8.6 GM/DL 7.1 GM/DL Albumin 1.8 GM/DL 1.5 GM/DL Calcium Level 8.4 MG/DL 7.7 MG/DL Alkaline Phosphatase 159 U/L 130 U/L Aspartate Amino Transf (AST/SGOT) 286 U/L 227 U/L Alanine Aminotransferase (ALT/SGPT) 52 U/L 41 U/L Total Bilirubin 13.9 MG/DL 11.0 MG/DL Direct Bilirubin 9.2 MG/DL Sodium Level 133 MEQ/L 138 MEQ/L Potassium Level 4.2 MEQ/L 3.6 MEQ/L Chloride Level 99 MEQ/L 105 MEQ/L Carbon Dioxide Level 24.7 MEQ/L 25.2 MEQ/L Anion Gap 9 MEQ/L 8 MEQ/L Estimat Glomerular Filtration Rate 70 ML/MIN 90 ML/MIN Lactic Acid Level 1.6 mmol/L Ammonia 13 MCMOL/L Neutrophils (%) (Auto) 74.0 % Lymphocytes (%) (Auto) 15.3 % Monocytes (%) (Auto) 8.6 % Eosinophils (%) (Auto) 1.8 % Basophils (%) (Auto) 0.3 % Neutrophils # (Auto) 13.1 TH/MM3 Lymphocytes # (Auto) 2.7 TH/MM3 Monocytes # (Auto) 1.5 TH/MM3 Eosinophils # (Auto) 0.3 TH/MM3 Basophils # (Auto) 0.1 TH/MM3 Date/Time Source Procedure Growth Status 08/11/17 19:15 Blood Peripheral Aerobic Blood Culture Pending Received 08/11/17 19:15 Blood Peripheral Anaerobic Blood Culture Pending Received 08/11/17 18:15 Urine Catheterized Urine Urine Culture Pending Received Physical Examination HEENT: Pupils round and reactive to light; normocephalic; atraumatic; no jaundice. speech clear NECK: Neck is supple, no JVD, no lymphadenopathy. CHEST: Chest is clear to auscultation and percussion. CARDIAC: Regular rate and rhythm with no murmur gallop or rubs. ABDOMEN: round, Soft, mild distention nontender; + hepatosplenomegaly; bowel sounds are present in all four quadrants. EXTREMITIES: No clubbing, cyanosis, or edema. SKIN: Normal; no rash; no jaundice. SENIOR TECHNICAL MANAGER: No focal deficits; awake and oriented times three. (Lindsay Lazar) Assessment and Plan Assessment: (1) Abdominal pain ICD Codes: R10.9 - Unspecified abdominal pain (2) Jaundice ICD Codes: R17 - Unspecified jaundice Status: Acute (3) Hepatitis C ICD Codes: B19.20 - Unspecified viral hepatitis C without hepatic coma Status: Acute Plan Abdominal bloating, nausea vomiting, recent diagnosis of hepatitis C and probable cirrhosis. Liver workup has been initiated and patient was due to come to the GI office on 08/13/17. Patient has been taking her medications except her lactulose dose was cut in half approximately 4-5 days ago secondary to uncontrolled nausea and vomiting. Patient's ultrasound shows trace of ascites otherwise unremarkable. Still has abnormal chemistry labs Anemia probable secondary to her liver disease currently 10.5. No obvious hematemesis or melena. Plan Trial heart healthy low-sodium diet today for toleration. Increase patient's lactulose dose back up to three a day. Increase Aldactone 50 mg. BID Lasix 20 mg. daily added Pentoxifylline 400mg every 8 hrs, per OP dose PPI, daily Anti-emetics, consider Zofran for home usage Discussed discharge planning with attending, if patient has nausea and vomiting under control, she can follow up in our office tomorrow or 1 week since she was seen today. Supportive care Patient was seen per myself and Dr. Cruz, note was written on his behalf (Lindsay Lazar) Physician Comments Patient seen and examined Agree with above Continue with current supportive care Monitor labs Patient with acute alcoholic hepatitis Seems to be doing better clinically today Patient follow-up post discharge (Burke Cruz MD) Problem Qualifiers (1) Hepatitis C: Qualified Codes: B17.10 - Acute hepatitis C without hepatic coma Lindsay Laazr Aug 12, 2017 09:47 Burke Cruz MD Aug 12, 2017 20:15
[2017-08-12] MEDS ORDERED: PANTOPRAZOLE SOD 40 MG DELAYED RELEASE TAB PO SCH (10:00)
--- NOTE | 2017-08-12 11:48 | HHI.HP ---
[facility] Service [facility] Primary Care Physician Gaby Foster, KINGA Admission Diagnosis Leukocytosis, UTI, jaundice, hepatitis Diagnoses: Chief Complaint: jaundice, sent by PCP Travel History International Travel<30 Days: No Contact w/Intl Traveler <30 Da: No Traveled to Known Affected Are: No History of Present Illness This patient is a 42-year-old female was admitted to the hospital recently with new diagnosis of hepatic liver failure secondary to hepatitis C and alcoholic dependence. Since that time she has been abstinent from alcohol but saw her primary care provider due to some side effects related to that her new prescriptions post discharge. She has some uncontrolled nausea and vomiting associated with lactulose. Her primary provider decrease her lactulose and the patient began to have increased abdominal bloating with abdominal discomfort. She came to the emergency room on the advice of her primary care provider. Her labs are basically unchanged. Hepatitis C results are available and the viral load is minimal. Patient is amatory without difficulty. CT of abdomen pelvis unremarkable for acute findings. Patient education has been provided at the bedside. I did discuss with gastro-intestinal team regarding further outpatient follow-up. Review of Systems Constitutional: DENIES: Diaphoretic episodes, Fatigue, Fever, Weight gain, Weight loss, Chills, Dizziness, Change in appetite, Night Sweats Endocrine: DENIES: Abnorml menstrual pattern, Heat/cold intolerance, Polydipsia , Polyuria, Polyphagia Eyes: DENIES: Blurred vision, Diplopia, Eye inflammation, Eye pain, Vision loss , Photosensitivity, Double Vision Ears, nose, mouth, throat: DENIES: Tinnitus, Hearing loss, Vertigo, Nasal discharge, Oral lesions, Throat pain, Hoarseness, Ear Pain, Running Nose, Epistaxis, Sinus Pain, Toothache, Odynophagia Respiratory: DENIES: Apneas, Cough, Snoring, Wheezing, Hemoptysis, Sputum production, Shortness of breath Cardiovascular: DENIES: Chest pain, Palpitations, Syncope, Dyspnea on Exertion , PND, Lower Extremity Edema, Orthopnea, Claudication Gastrointestinal: COMPLAINS OF: Abdominal pain, Diarrhea (While on lactulose), DENIES: Black stools, Bloody stools, Constipation, Nausea, Vomiting, Difficulty Swallowing, Anorexia Genitourinary: DENIES: Abnormal vaginal bleeding, Dysmenorrhea, Dyspareunia, Sexual dysfunction, Urinary frequency, Urinary incontinence, Urgency, Hematuria , Dysuria, Nocturia, Vaginal discharge Musculoskeletal: DENIES: Joint pain, Muscle aches, Stiffness, Joint Swelling, Back pain, Neck pain Integumentary: DENIES: Abnormal pigmentation, Pruritus, Rash, Nail changes, Breast masses, Breast skin changes, Nipple discharge Hematologic/lymphatic: DENIES: Bruising, Lymphadenopathy Immunologic/allergic: DENIES: Eczema, Urticaria Neurologic: DENIES: Abnormal gait, Headache, Localized weakness, Paresthesias, Seizures, Speech Problems, Tremor, Poor Balance Psychiatric: DENIES: Anxiety, Confusion, Mood changes, Depression, Hallucinations, Agitation, Suicidal Ideation, Homicidal Ideation, Delusions Past Family Social History Past Medical History Recent hepatitis C and portal hypertension diagnosis Abdominal bloating Liver cirrhosis diagnostics been worked up secondary to probable alcohol Past Surgical History Reported Medications Reviewed in the EMR, recently decreased her lactulose per her primary provider Allergies: Coded Allergies: No Known Allergies (Unverified , 08/11/17) Active Ordered Medications Reviewed in the EMR Family History Mother has COPD and breast cancer Father is alive and well Social History Lives with her Quit alcohol last month no tobacco dependence Physical Exam Vital Signs Vital Signs Date Time Temp Pulse Resp B/P (MAP) Pulse Ox O2 Delivery O2 Flow Rate FiO2 08/12/17 07:50 97.8 84 20 115/84 (94) 98 08/11/17 22:25 97.6 97 20 121/71 (88) 96 08/11/17 22:23 08/11/17 19:31 93 16 119/69 (86) 98 Room Air 08/11/17 19:31 16 98 Room Air 08/11/17 17:03 98.0 94 16 140/82 (101) 99 Physical Exam GENERAL: This is a well-nourished, well-developed patient, jaundiced in no apparent distress. SKIN: No rashes, ecchymoses or lesions. Cool and dry. HEAD: Atraumatic. Normocephalic. No temporal or scalp tenderness. EYES: Pupils equal round and reactive. Extraocular motions intact. Scleral icterus s. No injection or drainage. ENT: Nose without bleeding, purulent drainage or septal hematoma. Throat without erythema, tonsillar hypertrophy or exudate. Uvula midline. Airway patent. NECK: Trachea midline. No JVD or lymphadenopathy. Supple, nontender, no meningeal signs. CARDIOVASCULAR: Regular rate and rhythm without murmurs, gallops, or rubs. RESPIRATORY: Clear to auscultation. Breath sounds equal bilaterally. No wheezes , rales, or rhonchi. GASTROINTESTINAL: Abdomen soft, non-tender, nondistended. No hepato-splenomegaly , or palpable masses. No guarding. MUSCULOSKELETAL: Extremities without clubbing, cyanosis, or edema. No joint tenderness, effusion, or edema noted. No calf tenderness. Negative Homans sign bilaterally. NEUROLOGICAL: Awake and alert. Cranial nerves II through XII intact. Motor and sensory grossly within normal limits. Five out of 5 muscle strength in all muscle groups. Normal speech. Laboratory Laboratory Tests Test 08/11/17 18:15 08/11/17 19:20 08/12/17 05:50 White Blood Count 22.0 17.7 Red Blood Count 3.52 2.90 Hemoglobin 12.6 10.5 Hematocrit 36.2 29.9 Mean Corpuscular Volume 102.8 103.1 Mean Corpuscular Hemoglobin 35.9 36.3 Mean Corpuscular Hemoglobin Concent 35.0 35.2 Red Cell Distribution Width 18.9 19.1 Platelet Count 381 296 Mean Platelet Volume 8.5 7.5 CBC Comment AUTO DIFF DIFF FINAL Differential Total Cells Counted 100 Neutrophils % (Manual) 78 Band Neutrophils % 2 Lymphocytes % 10 Monocytes % 6 Eosinophils % 1 Basophils % 1 Neutrophils # (Manual) 18.0 Metamyelocytes 1 Myelocytes 1 Differential Comment FINAL DIFF MANUAL Platelet Estimate NORMAL Platelet Morphology Comment NORMAL Red Cell Morphology Comment NORMAL Prothrombin Time 19.8 Prothromb Time International Ratio 2.0 Urine Color OTHER Urine Turbidity CLEAR Urine pH 6.5 Urine Specific [place] 1.010 Urine Protein 100 Urine Glucose (UA) 250 Urine Ketones 15 Urine Occult Blood SMALL Urine Nitrite POS Urine Bilirubin LARGE Urine Urobilinogen 1.0 Urine Leukocyte Esterase TRACE Urine RBC 4-9 Urine WBC 3-5 Urine WBC Clumps OCC Urine Squamous Epithelial Cells 0-5 Urine Transitional Epithelial Cells 0-5 Urine Renal Epithelial Cells 0-5 Urine Hyaline Casts 0-2 Urine White Blood Cell Casts 0-2 Microscopic Urinalysis Comment CATH-CULTURE IND Blood Urea Nitrogen 10 9 Creatinine 0.89 0.71 Random Glucose 93 85 Total Protein 8.6 7.1 Albumin 1.8 1.5 Calcium Level 8.4 7.7 Alkaline Phosphatase 159 130 Aspartate Amino Transf (AST/SGOT) 286 227 Alanine Aminotransferase (ALT/SGPT) 52 41 Total Bilirubin 13.9 11.0 Direct Bilirubin 9.2 Sodium Level 133 138 Potassium Level 4.2 3.6 Chloride Level 99 105 Carbon Dioxide Level 24.7 25.2 Anion Gap 9 8 Estimat Glomerular Filtration Rate 70 90 Lactic Acid Level 1.6 Ammonia 13 Neutrophils (%) (Auto) 74.0 Lymphocytes (%) (Auto) 15.3 Monocytes (%) (Auto) 8.6 Eosinophils (%) (Auto) 1.8 Basophils (%) (Auto) 0.3 Neutrophils # (Auto) 13.1 Lymphocytes # (Auto) 2.7 Monocytes # (Auto) 1.5 Eosinophils # (Auto) 0.3 Basophils # (Auto) 0.1 Date/Time Source Procedure Growth Status 08/11/17 19:15 Blood Peripheral Aerobic Blood Culture - Preliminary NO GROWTH IN 1 DAY Resulted 08/11/17 19:15 Blood Peripheral Anaerobic Blood Culture - Preliminary NO GROWTH IN 1 DAY Resulted 08/11/17 18:15 Urine Catheterized Urine Urine Culture Pending Received Result Diagram: 08/12/17 0550 08/12/17 0550 Imaging Last Impressions Chest X-Ray 08/11/17 1839 Signed Impressions: Service Date/Time: Friday, August 11, 2017 18:57 - CONCLUSION: No acute disease. Josh Post MD FACR Abdomen/Pelvis CT 08/11/17 0000 Signed Impressions: Service Date/Time: Friday, August 11, 2017 19:18 - CONCLUSION: Trace ascites otherwise negative. Josh Post MD FACR Caprini VTE Risk Assessment Caprini VTE Risk Assessment: Mod/High Risk (score >= 2) VTE Pharm Contraindication: Coagulopathy,INR elevated Caprini Risk Assessment Model Point Value = 1 Point Value = 2 Point Value = 3 Point Value = 5 Age 41-60 Minor surgery BMI > 25 kg/m2 Swollen legs Varicose veins or History of unexplained or recurrent spontaneous Oral contraceptives or hormone replacement Sepsis (< 1 month) Serious lung disease, including pneumonia (< 1 month) Abnormal pulmonary function Acute myocardial infarction Congestive heart failure (< 1 month) History of inflammatory bowel disease Medical patient at bed rest Age 61-74 Arthroscopic surgery Major open surgery (> 45 min) Laparoscopic surgery (> 45 min) Malignancy Confined to bed (> 72 hours) Immobilizing plaster cast Central venous access Age >= 75 History of VTE Family history of VTE Factor V Leiden Prothrombin [id number] Lupus anticoagulant Anticardiolipin antibodies Elevated serum homocysteine Heparin-induced thrombocytopenia Other congenital or acquired thrombophilia Stroke (< 1 month) Elective arthroplasty Hip, pelvis, or leg fracture Acute spinal cord injury (< 1 month) Prophylaxis Regimen Total Risk Factor Score Risk Level Prophylaxis Regimen 0-1 Low Early ambulation 2 Moderate Order ONE of the following: *Sequential Compression Device (SCD) *Heparin 5000 units SQ BID 3-4 Higher Order ONE of the following medications: *Heparin 5000 units SQ TID *Enoxaparin/Lovenox 40 mg SQ daily (WT < 150 kg, CrCl > 30 mL/min) *Enoxaparin/Lovenox 30 mg SQ daily (WT < 150 kg, CrCl > 10-29 mL/min) *Enoxaparin/Lovenox 30 mg SQ BID (WT < 150 kg, CrCl > 30 mL/min) AND/OR *Sequential Compression Device (SCD) 5 or more Highest Order ONE of the following medications: *Heparin 5000 units SQ TID (Preferred with Epidurals) *Enoxaparin/Lovenox 40 mg SQ daily (WT < 150 kg, CrCl > 30 mL/min) *Enoxaparin/Lovenox 30 mg SQ daily (WT < 150 kg, CrCl > 10-29 mL/min) *Enoxaparin/Lovenox 30 mg SQ BID (WT < 150 kg, CrCl > 30 mL/min) AND *Sequential Compression Device (SCD) Assessment and Plan Problem List: (1) Jaundice ICD Code: R17 - Unspecified jaundice Status: Acute Plan: Patient with hepatitis C with minimal viral load and with known alcoholic liver disease. Overall stable from previous evaluation Patient will need further outpatient services and continued education with medical management Discussed with GI team Likely discharge home on current regimen (2) Abdominal pain ICD Code: R10.9 - Unspecified abdominal pain Plan: Rocephin added for possible SBP Assessment and Plan Patient tolerated diet well Discharge home Diet low sodium/heart healthy Activity unrestricted Follow-up in a.m. with gi team Discussed Condition With Patient, Nuria ALMENDAREZ GI team Chloe Chamberlain MD Aug 12, 2017 11:48
[2017-08-12 11:50] VITALS: BP 134/82; PULSE 86; RESP 20; TEMP 98.5; O2SAT 98
[2017-08-12] MEDS: SODIUM CHLOR 0.9% 1000 ML INJ 1,000 ML IV SCH (12:19)
[2017-08-12] MEDS ORDERED: PENTOXIFYLLINE 400 MG CONTROLLED RELEASE TAB PO SCH (14:00)
[2017-08-12] MEDS ORDERED: FUROSEMIDE 20 MG TAB PO SCH (14:00)
[2017-08-12] MEDS ORDERED: PANT40TA3 PO (14:28)
[2017-08-12] MEDS ORDERED: FURO20TA PO (14:28)
[2017-08-12] MEDS ORDERED: ALDA50TA2 PO (14:28)
[2017-08-12] MEDS ORDERED: Lactulose Liq PO (14:28)
--- NOTE | 2017-08-12 14:28 | HHI.DCPOC ---
Discharge Care Plan Diagnosis: (1) Abdominal pain (2) Hepatitis C Goals to Promote Your Health * To prevent worsening of your condition and complications * To maintain your health at the optimal level Directions to Meet Your Goals Take your medications as prescribed Follow your dietary instruction Follow activity as directed Keep your appointments as scheduled Take your immunizations and boosters as scheduled If your symptoms worsen call your PCP, if no PCP go to Urgent Care Center or Emergency Room Smoking is Dangerous to Your Health. Avoid second hand smoke Call the 24-hour hour crisis hotline for domestic abuse at Chloe Chamberlain MD Aug 12, 2017 14:28
[2017-08-12] MEDS ORDERED: SPIRONOLACTONE 50 MG TAB PO SCH (18:00)
[2017-08-12] MEDS ORDERED: LACTULOSE SYRUP 20 GM/30 ML CUP PO SCH (18:00)
[2017-08-12] MEDS ORDERED: cefTRIAXone INJ 1,000 MG in SODIUM CHLORIDE 0.9% INJ 100 ML IV SCH (20:00)
== END 2017-08-12 15:11 | disposition home or self-care (01) ==
LOC: PHED 16:58 → PHEDA 20:06 → PH3A 22:12
PROVIDERS: ADMIT Hospitalist; ATTEND Hospitalist
DX: K70.11 Alcoholic hepatitis with ascites (principal); K72.90 Hepatic failure, unspecified without coma; K76.6 Portal hypertension; D64.9 Anemia, unspecified; R05 Cough; N39.0 Urinary tract infection, site not specified
CPT/HCPCS: 71045; 74176; 80053; 81001; 82140; 82248; 83605; 84703; 85007; 85025; 85027; 85610; 87040; 87086; 96361; 96365; 99285; G0378; J0696; J7030

== ENCOUNTER → 2017-08-17 | Outpatient (CLI) | payer BC ==
[~2017-08-17] VITALS: Ht 157.5 cm; Wt 84.8 kg
[~2017-08-17] MED LIST changes: +ALDA50TA2 PO; +CHLORHEXIDINE GLUCONATE 2 % 1 PACK (2 CLOTHS) TOPICAL PRN; -CIPR-9 PO; +FURO20TA PO; +FURO40TA PO; +INSULIN HUMAN REGULAR 1,000 UNITS/10 ML VIAL SQ PRN; +LACT10SO PO; +LACTATED RINGER'S 1000 ML IV PRN; +LIDOCAINE HCL 1% PF 5 ML SYRINGE OTHER ONE; +METOPROLOL TARTRATE 25 MG TAB PO PRN; -METR-1 PO; +PANT40TA3 PO; +POVIDONE IODINE 5% (ANTISEPSIS KIT) 4 APPLICATIONS EACH NARE PRN; +PROPOFOL 200 MG/20 ML AMP IV ONE; +SODIUM CHLORID 0.9% 500 ML IV PRN; -SPIR25 PO
[2017-08-17 14:06] VITALS: BP 133/88; PULSE 93; RESP 20; TEMP 97.8; O2SAT 99
--- NOTE | 2017-08-17 14:17 | PD.PROCEDR ---
GI Procedure PROCEDURE PERFORMED EGD with biopsy INDICATION FOR PROCEDURE Liver disease questionable cirrhosis rule out varices PROCEDURE: The procedure, risks and benefits were discussed with Ms. Chamberlain and informed consent was obtained. Anesthesia sedated her with Diprivan. She was placed in the left lateral decubitus position. EGD: The Pentax videoscope was introduced through the oropharynx and advanced to the second portion of the duodenum under direct visualization. Retroflexion was performed in the stomach. Biopsy from the antrum ESTIMATED BLOOD LOSS: None SPECIMENS REMOVED: Antrum COMPLICATIONS: None IMPRESSION: No varices Gastropathy Gastritis biopsy from the antrum PLAN: No alcohol Follow-up biopsy Follow up in office in 3 weeks Check liver function test in 2 weeks Electrolytes in 2 weeks Check CBC in 2 weeks Ammonia level in 2 weeks Hold Aldactone Lactulose down to 1 time a day make sure stool is loose Mayda Jane MD Aug 17, 2017 14:17
== END ==
LOC: HEND 10:20
PROVIDERS: ATTEND Hospitalist
DX: K29.50 Unspecified chronic gastritis without bleeding (principal); K31.9 Disease of stomach and duodenum, unspecified; K70.30 Alcoholic cirrhosis of liver without ascites; K76.6 Portal hypertension
CPT/HCPCS: 88305; 88312

== ENCOUNTER 2017-08-18 09:01 | Emergency (ER) | payer BC ==
[~2017-08-18] VITALS: Ht 154.9 cm; Wt 84.0 kg
[~2017-08-18 09:01] MED LIST changes: -CHLORHEXIDINE GLUCONATE 2 % 1 PACK (2 CLOTHS) TOPICAL PRN; -FURO40TA PO; -INSULIN HUMAN REGULAR 1,000 UNITS/10 ML VIAL SQ PRN; -LACT10SO PO; -LACTATED RINGER'S 1000 ML IV PRN; -LIDOCAINE HCL 1% PF 5 ML SYRINGE OTHER ONE; -METOPROLOL TARTRATE 25 MG TAB PO PRN; -POVIDONE IODINE 5% (ANTISEPSIS KIT) 4 APPLICATIONS EACH NARE PRN; -PROPOFOL 200 MG/20 ML AMP IV ONE; -SODIUM CHLORID 0.9% 500 ML IV PRN
[2017-08-18 09:05] VITALS: BP 117/69; PULSE 98; RESP 16; TEMP 98; O2SAT 98
[2017-08-18] MEDS ORDERED: LACT10SO PO (09:34)
[2017-08-18] MEDS ORDERED: FURO40TA PO (09:34)
[2017-08-18 09:41] LABS: BILIRUBIN, URINE LARGE (NEG); BLOOD, URINE SMALL (NEG); GLUCOSE,URINE NEG (NEG); KETONE, URINE NEG (NEG); NITRITE,URINE POS (NEG); PH, URINE 6.5 (5.0-8.5); URINE LEUKOCYTE ESTERASE NEG (NEG)
[2017-08-18 09:45] LABS: URINE COLOR AMBER (YELLW/STRAW)
[2017-08-18 09:56] LABS: BACTERIA, URINE FEW /hpf; RENAL EPITHELIAL CELLS 0-5 /hpf; SQUAMOUS EPITHELIAL CELL URINE > 8 /hpf (0-5)
[2017-08-18 10:19] LABS: AUTOMATED NEUTROPHIL # 11.5 TH/MM3 (1.8-7.7); BASOPHIL # 0.4 TH/MM3 (0-0.2); BASOPHIL % 2.7 % (0.0-2.0); EOSINOPHIL # 0.4 TH/MM3 (0-0.4); EOSINOPHIL % 2.2 % (0.0-4.0); HEMATOCRIT 33.3 % (35.0-46.0); HEMOGLOBIN 11.5 GM/DL (11.6-15.3); LYMPH % 18.7 % (9.0-44.0); LYMPHOCYTE # 3.1 TH/MM3 (1.0-4.8); MEAN CELL VOLUME 104.9 FL (80.0-100.0); MEAN CORPUSCULAR HEMOGLOBIN 36.1 PG (27.0-34.0); MEAN CORPUSCULAR HGB CONC 34.4 % (32.0-36.0); MONO % 6.3 % (0.0-8.0); NEUT % 70.1 % (16.0-70.0); PLATELET COUNT 283 TH/MM3 (150-450); RED BLOOD COUNT 3.18 MIL/MM3 (4.00-5.30); RED CELL DISTRIBUTION WIDTH 16.6 % (11.6-17.2); WHITE BLOOD COUNT 16.4 TH/MM3 (4.0-11.0)
--- NOTE | 2017-08-18 10:23 | PD ---
HPI Chief Complaint: Abnormal Results Time Seen by Provider: 10:06 Travel History International Travel<30 days: No Contact w/Intl Traveler<30days: No Traveled to known affect area: No History of Present Illness HPI This 42-year-old female was told to come here for evaluation of possible spontaneous bacterial peritonitis. She was seen in the emergency department in July 29 at that time she had a new onset of jaundice. At that time was thought it might be related to alcohol. She has stopped drinking since then has not had any alcohol. She has been following up with Dr. Leong. She had an upper endoscopy yesterday which was negative for varices. Apparently she had some lab work done and she had elevation of her white count and LFTs and there was concern that she might have spontaneous bacterial peritonitis. She says her stomach is not hurting her. PFSH Past Medical History Hx Anticoagulant Therapy: No Cancer: No Cardiovascular Problems: No Cirrhosis: Yes Diabetes: No Diminished Hearing: No Endocrine: No Genitourinary: No Hepatitis: Yes (C) Immune Disorder: No Musculoskeletal: No Neurologic: No Psychiatric: No Reproductive: No Respiratory: No Influenza Vaccination: Yes ?: Not Past Surgical History Section: Yes Gynecologic Surgery: Yes () Oral Surgery: Yes (tonsils) Other Surgery: Yes Social History Alcohol Use: No (DENIES) Tobacco Use: No Substance Use: No Allergies-Medications (Allergen,Severity, Reaction): Coded Allergies: No Known Allergies (Unverified , 08/18/17) Reported Meds & Prescriptions Reported Meds & Active Scripts Active Pantoprazole (Pantoprazole Sodium) 40 Mg Tab 40 Mg PO DAILY Pentoxifylline ER (Pentoxifylline) 400 Mg Tab 400 Mg PO TID Coreg (Carvedilol) 3.125 Mg Tab 3.125 Mg PO BID Reported Lactulose Liq (Lactulose) 10 Gm/15 Ml Soln 15 Ml PO DAILY Furosemide 40 Mg Tab 40 Mg PO DAILY Review of Systems General / Constitutional: No: Fever, Chills Eyes: No: Diploplia, Blurred Vision HENT: No: Headaches, Vertigo Cardiovascular: No: Chest Pain or Discomfort, Palpitations Respiratory: No: Cough Genitourinary: No: Urgency, Frequency Skin: Positive Change in Pigmentation, No Rash, No Itching Neurologic: No: Weakness Physical Exam Narrative GENERAL: Well-developed female SKIN: Focused skin assessment warm/dry. Jaundice HEAD: Atraumatic. Normocephalic. EYES: Pupils equal and round. There is scleral icterus. No injection or drainage. ENT: No nasal bleeding or discharge. Mucous membranes pink and moist. NECK: Trachea midline. No JVD. CARDIOVASCULAR: Regular rate and rhythm. No murmur appreciated. RESPIRATORY: No accessory muscle use. Clear to auscultation. Breath sounds equal bilaterally. GASTROINTESTINAL: Abdomen soft, non-tender, nondistended. Hepatic and splenic margins not palpable. MUSCULOSKELETAL: No obvious deformities. No clubbing. No cyanosis. No edema. NEUROLOGICAL: Awake and alert. No obvious cranial nerve deficits. Motor grossly within normal limits. Normal speech. PSYCHIATRIC: Appropriate mood and affect; insight and judgment normal. Data Data Last Documented VS Vital Signs Date Time Temp Pulse Resp B/P (MAP) Pulse Ox O2 Delivery O2 Flow Rate FiO2 08/18/17 11:55 08/18/17 11:10 95 14 99 Room Air 08/18/17 09:05 98.0 Orders Orders Urinalysis - C+S If Indicated (08/18/17 09:19) Ed Urine Pregnancytest Poc (08/18/17 09:19) Ammonia (08/18/17 09:51) Complete Blood Count With Diff (08/18/17 09:51) Act Partial Throm Time (Ptt) (08/18/17 09:51) Prothrombin Time / Inr (Pt) (08/18/17 09:51) Comprehensive Metabolic Panel (08/18/17 09:51) Blood Culture (08/18/17 10:15) Potassium Chloride (Kcl) (08/18/17 11:00) Labs Laboratory Tests Test 08/18/17 09:20 08/18/17 10:05 08/18/17 10:35 Urine Collection Type CLEAN CATCH Urine Color IKE Urine Turbidity CLEAR Urine pH 6.5 Urine Specific [place] 1.025 Urine Protein 30 mg/dL Urine Glucose (UA) NEG mg/dL Urine Ketones NEG mg/dL Urine Occult Blood SMALL Urine Nitrite POS Urine Bilirubin LARGE Urine Urobilinogen 0.2 MG/DL Urine Leukocyte Esterase NEG Urine RBC 10-14 /hpf Urine WBC 3-5 /hpf Urine Squamous Epithelial Cells > 8 /hpf Urine Renal Epithelial Cells 0-5 /hpf Urine Bacteria FEW /hpf Urine Coarse Granular Casts 3-5 /lpf Microscopic Urinalysis Comment CULT NOT INDICATED Urine Collection Time 09:20 White Blood Count 16.4 TH/MM3 Red Blood Count 3.18 MIL/MM3 Hemoglobin 11.5 GM/DL Hematocrit 33.3 % Mean Corpuscular Volume 104.9 FL Mean Corpuscular Hemoglobin 36.1 PG Mean Corpuscular Hemoglobin Concent 34.4 % Red Cell Distribution Width 16.6 % Platelet Count 283 TH/MM3 Mean Platelet Volume 8.0 FL Neutrophils (%) (Auto) 70.1 % Lymphocytes (%) (Auto) 18.7 % Monocytes (%) (Auto) 6.3 % Eosinophils (%) (Auto) 2.2 % Basophils (%) (Auto) 2.7 % Neutrophils # (Auto) 11.5 TH/MM3 Lymphocytes # (Auto) 3.1 TH/MM3 Monocytes # (Auto) 1.0 TH/MM3 Eosinophils # (Auto) 0.4 TH/MM3 Basophils # (Auto) 0.4 TH/MM3 CBC Comment DIFF FINAL Differential Comment Prothrombin Time 16.1 SEC Prothromb Time International Ratio 1.6 RATIO Activated Partial Thromboplast Time 33.3 SEC Ammonia 59 MCMOL/L Blood Urea Nitrogen 8 MG/DL Creatinine 0.85 MG/DL Random Glucose 120 MG/DL Total Protein 8.4 GM/DL Albumin 2.0 GM/DL Calcium Level 8.5 MG/DL Alkaline Phosphatase 151 U/L Aspartate Amino Transf (AST/SGOT) 339 U/L Alanine Aminotransferase (ALT/SGPT) 67 U/L Total Bilirubin 7.6 MG/DL Sodium Level 135 MEQ/L Potassium Level 3.1 MEQ/L Chloride Level 99 MEQ/L Carbon Dioxide Level 27.4 MEQ/L Anion Gap 9 MEQ/L Estimat Glomerular Filtration Rate 73 ML/MIN [facility] Medical Decision Making Medical Screen Exam Complete: Yes Emergency Medical Condition: Yes Medical Record Reviewed: Yes Differential Diagnosis Differential includes cirrhosis, jaundice, peritonitis Narrative Course Work was checked. The patient does have a persistent elevation of her white count which has been present previously. Her liver function tests are overall improving. She feels well and does not have fever or a tender abdomen. I do not believe she has peritonitis. She will be released Diagnosis Primary Impression: Jaundice Disposition: DISCHARGE HOME Condition: Stable Rex Bashir MD Aug 18, 2017 10:22
[2017-08-18 10:54] LABS: CHLORIDE 99 MEQ/L (98-107); SODIUM (NA) 135 MEQ/L (136-145)
[2017-08-18 10:56] LABS: INTERNATIONAL NORMALIZED RATIO 1.6 RATIO; PROTHROMBIN TIME - PATIENT 16.1 SEC (9.8-11.6)
[2017-08-18 10:57] LABS: BICARBONATE 27.4 MEQ/L (21.0-32.0); CALCIUM 8.5 MG/DL (8.5-10.1); GLUCOSE,RANDOM 120 MG/DL (74-106)
[2017-08-18 10:58] LABS: BLOOD UREA NITROGEN 8 MG/DL (7-18)
[2017-08-18 11:00] LABS: ALT (GPT) 67 U/L (10-53); AST (GOT) 339 U/L (15-37)
[2017-08-18] MEDS ORDERED: POTASSIUM CHLORIDE 20 MEQ CONTROLLED RELEASE TAB PO ONE (11:00)
[2017-08-18 11:01] LABS: CREATININE 0.85 MG/DL (0.50-1.00); GLOMERULAR FILTRATION RATE 73 ML/MIN (>89)
[2017-08-18 11:02] LABS: TOTAL BILIRUBIN ADULT 7.6 MG/DL (0.2-1.0); TOTAL PROTEIN 8.4 GM/DL (6.4-8.2)
[2017-08-18 11:03] LABS: ALKALINE PHOSPHATASE 151 U/L (45-117)
[2017-08-18 11:10] VITALS: BP 131/78; PULSE 95; RESP 14; O2SAT 99
== END 2017-08-18 12:19 | disposition home or self-care (01) ==
LOC: PHED 09:01
DX: R17 Unspecified jaundice (principal); K74.60 Unspecified cirrhosis of liver; Z86.19 Personal history of other infectious and parasitic diseases; Z79.899 Other long term (current) drug therapy
CPT/HCPCS: 80053; 81001; 82140; 84703; 85025; 85610; 85730; 87040; 99283

== ENCOUNTER 2017-09-16 09:44 | Emergency (ER) | payer BC ==
[~2017-09-16] VITALS: Ht 160 cm; Wt 82.3 kg
[~2017-09-16 09:44] MED LIST changes: -ALDA50TA2 PO; -FURO20TA PO; +FURO40TA PO; -K-PHTAB PO; +LACT10SO PO; -Lactulose Liq PO
[2017-09-16 09:45] VITALS: BP 172/96; PULSE 109; RESP 18; TEMP 98.6; O2SAT 98
[2017-09-16] MEDS ORDERED: VITA100021 SL (09:55)
[2017-09-16] MEDS ORDERED: XIFA550T4 PO (09:55)
--- NOTE | 2017-09-16 10:20 | PD ---
HPI Chief Complaint: Abdominal Pain Time Seen by Provider: 09:59 Travel History International Travel<30 days: No Contact w/Intl Traveler<30days: No Traveled to known affect area: No History of Present Illness HPI This 42-year-old female says she is having some numbness in her abdomen and legs. She is Dr. Jane and had been on 10 medications daily she is currently just on Xifanan for the last few days. She initially said she was having some abdominal pain but she now says this is though the right upper quadrant is numb PFSH Past Medical History Hx Anticoagulant Therapy: No Cancer: No Cardiovascular Problems: No Cirrhosis: Yes Diabetes: No Diminished Hearing: No Endocrine: No Genitourinary: No Hepatitis: Yes (C) Immune Disorder: No Musculoskeletal: No Neurologic: No Psychiatric: No Reproductive: No Respiratory: No ?: Not LMP: irregular Past Surgical History Section: Yes Gynecologic Surgery: Yes () Oral Surgery: Yes (tonsils) Other Surgery: Yes Social History Alcohol Use: No (DENIES) Tobacco Use: No Substance Use: No Allergies-Medications (Allergen,Severity, Reaction): Coded Allergies: No Known Allergies (Unverified , 09/16/17) Reported Meds & Prescriptions Reported Meds & Active Scripts Active Coreg (Carvedilol) 3.125 Mg Tab 3.125 Mg PO BID Reported Xifaxan (Rifaximin) 550 Mg Tab 550 Mg PO Q12HR Vitamin B-12 (Cyanocobalamin) 1,000 Mcg Subl 1,000 Mcg SL DAILY Physical Exam Narrative GENERAL: Well-developed female SKIN: Focused skin assessment warm/dry. HEAD: Atraumatic. Normocephalic. EYES: Pupils equal and round. Mild l icterus. No injection or drainage. ENT: No nasal bleeding or discharge. Mucous membranes pink and moist. NECK: Trachea midline. No JVD. CARDIOVASCULAR: Regular rate and rhythm. No murmur appreciated. RESPIRATORY: No accessory muscle use. Clear to auscultation. Breath sounds equal bilaterally. GASTROINTESTINAL: Abdomen soft, mild right upper quadrant tenderness nondistended. Hepatic and splenic margins not palpable. MUSCULOSKELETAL: No obvious deformities. No clubbing. No cyanosis. No edema. NEUROLOGICAL: Awake and alert. No obvious cranial nerve deficits. Motor grossly within normal limits. Normal speech. PSYCHIATRIC: Appropriate mood and affect; insight and judgment normal. Data Data Last Documented VS Vital Signs Date Time Temp Pulse Resp B/P (MAP) Pulse Ox O2 Delivery O2 Flow Rate FiO2 09/16/17 09:45 98.6 109 18 172/96 (121) 98 Orders Orders Urinalysis - C+S If Indicated (09/16/17 09:53) Ed Urine Pregnancytest Poc (09/16/17 09:53) Complete Blood Count With Diff (09/16/17 10:17) Comprehensive Metabolic Panel (09/16/17 10:17) Ammonia (09/16/17 10:17) Labs Laboratory Tests Test 09/16/17 10:15 09/16/17 11:00 White Blood Count 7.9 TH/MM3 Red Blood Count 3.78 MIL/MM3 Hemoglobin 13.2 GM/DL Hematocrit 38.2 % Mean Corpuscular Volume 101.0 FL Mean Corpuscular Hemoglobin 34.9 PG Mean Corpuscular Hemoglobin Concent 34.6 % Red Cell Distribution Width 13.8 % Platelet Count 130 TH/MM3 Mean Platelet Volume 7.0 FL Neutrophils (%) (Auto) 66.4 % Lymphocytes (%) (Auto) 26.0 % Monocytes (%) (Auto) 4.3 % Eosinophils (%) (Auto) 2.3 % Basophils (%) (Auto) 1.0 % Neutrophils # (Auto) 5.3 TH/MM3 Lymphocytes # (Auto) 2.0 TH/MM3 Monocytes # (Auto) 0.3 TH/MM3 Eosinophils # (Auto) 0.2 TH/MM3 Basophils # (Auto) 0.1 TH/MM3 CBC Comment DIFF FINAL Differential Comment Blood Urea Nitrogen 5 MG/DL Creatinine 0.74 MG/DL Random Glucose 150 MG/DL Total Protein 9.5 GM/DL Albumin 3.0 GM/DL Calcium Level 8.7 MG/DL Alkaline Phosphatase 214 U/L Aspartate Amino Transf (AST/SGOT) 101 U/L Alanine Aminotransferase (ALT/SGPT) 43 U/L Total Bilirubin 4.5 MG/DL Sodium Level 138 MEQ/L Potassium Level 3.1 MEQ/L Chloride Level 104 MEQ/L Carbon Dioxide Level 24.6 MEQ/L Anion Gap 9 MEQ/L Estimat Glomerular Filtration Rate 86 ML/MIN Ammonia 31 MCMOL/L Urine Collection Type VOIDED Urine Color YELLOW Urine Turbidity CLEAR Urine pH 7.5 Urine Specific [place] 1.010 Urine Protein TRACE mg/dL Urine Glucose (UA) NEG mg/dL Urine Ketones TRACE mg/dL Urine Occult Blood MOD Urine Nitrite NEG Urine Bilirubin MOD Urine Urobilinogen 4.0 MG/DL Urine Leukocyte Esterase NEG Urine RBC 0-3 /hpf Urine Squamous Epithelial Cells 3-5 /hpf Microscopic Urinalysis Comment CULT NOT INDICATED MDM Medical Decision Making Medical Screen Exam Complete: Yes Emergency Medical Condition: Yes Medical Record Reviewed: Yes Differential Diagnosis Differential includes cirrhosis, Narrative Course Lab work shows progressive improvement in the patient's liver function tests. She appears to have some diminished sensation in both feet but good motor strength. She is stable for discharge Diagnosis Primary Impression: Abdominal pain Disposition: 01 DISCHARGE HOME Condition: Stable Rex Bashir MD September 16, 2017 10:19
[2017-09-16 10:31] LABS: AUTOMATED NEUTROPHIL # 5.3 TH/MM3 (1.8-7.7); BASOPHIL # 0.1 TH/MM3 (0-0.2); EOSINOPHIL # 0.2 TH/MM3 (0-0.4); EOSINOPHIL % 2.3 % (0.0-4.0); HEMATOCRIT 38.2 % (35.0-46.0); HEMOGLOBIN 13.2 GM/DL (11.6-15.3); MEAN CORPUSCULAR HEMOGLOBIN 34.9 PG (27.0-34.0); MEAN CORPUSCULAR HGB CONC 34.6 % (32.0-36.0); MONO % 4.3 % (0.0-8.0); MONOCYTE # 0.3 TH/MM3 (0-0.9); NEUT % 66.4 % (16.0-70.0); PLATELET COUNT 130 TH/MM3 (150-450); RED BLOOD COUNT 3.78 MIL/MM3 (4.00-5.30); RED CELL DISTRIBUTION WIDTH 13.8 % (11.6-17.2); WHITE BLOOD COUNT 7.9 TH/MM3 (4.0-11.0)
[2017-09-16 10:38] LABS: CHLORIDE 104 MEQ/L (98-107); SODIUM (NA) 138 MEQ/L (136-145)
[2017-09-16 10:41] LABS: CALCIUM 8.7 MG/DL (8.5-10.1)
[2017-09-16 10:42] LABS: BICARBONATE 24.6 MEQ/L (21.0-32.0); BLOOD UREA NITROGEN 5 MG/DL (7-18); GLUCOSE,RANDOM 150 MG/DL (74-106)
[2017-09-16 10:45] LABS: ALT (GPT) 43 U/L (10-53); AST (GOT) 101 U/L (15-37); CREATININE 0.74 MG/DL (0.50-1.00); GLOMERULAR FILTRATION RATE 86 ML/MIN (>89)
[2017-09-16 10:47] LABS: TOTAL BILIRUBIN ADULT 4.5 MG/DL (0.2-1.0); TOTAL PROTEIN 9.5 GM/DL (6.4-8.2)
[2017-09-16 10:48] LABS: ALKALINE PHOSPHATASE 214 U/L (45-117)
[2017-09-16 11:08] LABS: BILIRUBIN, URINE MOD (NEG); BLOOD, URINE MOD (NEG); GLUCOSE,URINE NEG (NEG); KETONE, URINE TRACE mg/dL (NEG); NITRITE,URINE NEG (NEG); PH, URINE 7.5 (5.0-8.5); URINE COLOR YELLOW (YELLW/STRAW); URINE LEUKOCYTE ESTERASE NEG (NEG)
[2017-09-16 11:27] LABS: RBC, URINE 0-3 /hpf (0-3)
== END 2017-09-16 13:06 | disposition home or self-care (01) ==
LOC: PHED 09:44
DX: R20.0 Anesthesia of skin (principal); K74.60 Unspecified cirrhosis of liver; Z86.19 Personal history of other infectious and parasitic diseases; Z79.899 Other long term (current) drug therapy
CPT/HCPCS: 80053; 81001; 82140; 84703; 85025; 99283